=== PATIENT | female | born 1945 | race African-American/Black ===

== ENCOUNTER 2017-12-17 11:00 | Inpatient (IN) | payer OTHER ==
[2017-12-20 10:04] VITALS: BMI 26.4
[2018-01-02] MEDS ORDERED: oxyCODONE HCL 10 MG SUSTAINED ACTING TABLET PO ONE (21:53)
[2018-01-02] MEDS ORDERED: GABAPENTIN 300 MG CAPSULE (FP) PO ONE (21:53)
[2018-01-02] MEDS ORDERED: CELECOXIB 200 MG CAPSULE PO ONE (21:53)
[2018-01-02] MEDS ORDERED: ROPIVICAINE 0.2%/MORPH PF/KETOROLAC - 51ML DISP.SYRINGE IA ONE (21:53)
[2018-01-02] MEDS ORDERED: PANTOPRAZOLE 40 MG TABLET (FP) PO ONE (21:53)
[2018-01-02] MEDS ORDERED: CEFAZOLIN 1 GM/D5W 1 GM/50 ML BAG IVPB ONE (21:53)
[2018-01-02] MEDS ORDERED: TRANEXAMIC ACID 1000 MG/10 ML VIAL IVPUSH ONE (21:53)
[2018-01-03] MEDS ORDERED: GABAPENTIN 300 MG CAPSULE (FP) ONE (06:41)
[2018-01-03] MEDS ORDERED: CELECOXIB 200 MG CAPSULE ONE (06:41)
[2018-01-03] MEDS ORDERED: PANTOPRAZOLE 40 MG TABLET (FP) ONE (06:41)
[2018-01-03] MEDS ORDERED: oxyCODONE HCL 10 MG SUSTAINED ACTING TABLET ONE (06:41)
[2018-01-03] MEDS ORDERED: DEXAMETHASONE SOD PHOSPHATE/PF 10 MG/ML SDV ONE (06:59)
[2018-01-03] MEDS ORDERED: MIDAZOLAM HCL 2 MG/2 ML SINGLE DOSE VIAL ONE ×2 (06:59→07:00)
[2018-01-03] MEDS ORDERED: BUPIVACAINE HCL/PF (5 MG/ML) 30 ML VIAL IJ ONE (07:00)
[2018-01-03] MEDS ORDERED: ONDANSETRON 4 MG/2 ML VIAL ONE (07:06)
[2018-01-03] MEDS ORDERED: DEXAMETHASONE SOD PHOSPHATE 4 MG/1 ML VIAL ONE (07:06)
[2018-01-03] MEDS ORDERED: ceFAZolin SODIUM 1 GM VIAL ONE ×2 (07:06→07:49)
[2018-01-03] MEDS ORDERED: SODIUM CHLORIDE 0.9% P/F 10 ML VIAL IJ ONE (07:06)
[2018-01-03] MEDS ORDERED: PROPOFOL 20 ML ONE ×3 (07:10→09:11)
[2018-01-03] MEDS ORDERED: SUCCINYLCHOLINE CHLORIDE 200 MG/10 ML VIAL ONE (07:12)
--- NOTE | 2018-01-03 07:27 | HP ---
Admitting History and Physical - Admission Chief Complaint: left hip osteoarthritis x years History of Present Illness: 72 year old female presents today in regard to her left hip. Longstanding history of left hip osteoarthritis. Patient complains of pain, limited ROM, difficulty ambulating and difficulty with ADLs. Patient has failed conservative treatment measures including PO medication, activity modification, injections and exercise programs. At this point, patient wishes to proceed with surgical intervention - left total hip arthroplasty (MAKOplasty). History Source: Patient - Past Medical History Cardiovascular: Yes: HTN, Hyperlipdemia Gastrointestinal: Yes: GERD ...: No - Past Surgical History Additional Past Surgical History: See written history & physical. - Smoking History Smoking history: Never smoked Have you smoked in the past 12 months: No If you are a former smoker, when did you quit?: 1970S - Alcohol/Substance Use Hx Alcohol Use: Yes (RARE) Home Medications - Allergies Allergies/Adverse Reactions: Allergies Allergy/AdvReac Type Severity Reaction Status Date / Time No Known Drug Allergies Allergy Verified 12/20/17 09:52 - Home Medications Home Medications: Ambulatory Orders Amlodipine Besylate [Norvasc -] 5 mg PO DAILY 09/16/13 Benazepril HCl 20 mg PO DAILY 09/16/13 Simvastatin [Zocor -] 20 mg PO DAILY 09/16/13 Esomeprazole Mag Trihydrate [Nexium] 40 mg PO DAILY PRN 03/21/14 Review of Systems - Review of Systems Musculoskeletal: reports: Decreased ROM (left hip), Joint Pain (left hup) Physical Examination Vital Signs: Vital Signs Temperature 97.7 F 01/03/18 06:20 Pulse Rate 106 H 01/03/18 06:20 Respiratory Rate 18 01/03/18 06:20 Blood Pressure 171/86 01/03/18 06:20 O2 Sat by Pulse Oximetry (%) Constitutional: Yes: Well Nourished, No Distress Eyes: Yes: Conjunctiva Clear HENT: Yes: Atraumatic, Normocephalic Neck: Yes: Supple Cardiovascular: Yes: Regular Rate and Rhythm Respiratory: Yes: Regular Gastrointestinal: Yes: Soft ...Rectal Exam: Yes: Deferred Musculoskeletal: Yes: Joint Stiffness (left hip) Assessment/Plan 72 year old female presents today in regard to her left hip. Longstanding history of left hip osteoarthritis. Patient complains of pain, limited ROM, difficulty ambulating and difficulty with ADLs. Patient has failed conservative treatment measures including PO medication, activity modification, injections and exercise programs. At this point, patient wishes to proceed with surgical intervention - left total hip arthroplasty (MAKOplasty). Pros, cons, risks, benefits and alternatives of a left total hip arthroplasty (MAKOplasty) were discussed with the patient at length. Patient confirms her understanding and consent to proceed with a left total hip arthroplasty (MAKOplasty).
[2018-01-03] MEDS ORDERED: TRANEXAMIC ACID 1000 MG/10 ML VIAL ONE ×2 (07:49→08:17)
[2018-01-03] MEDS ORDERED: VANCOMYCIN 1,000 MG VIAL (RESTRICTED TO ID ONLY) ONE (07:49)
[2018-01-03] MEDS ORDERED: ROPIVICAINE 0.2%/MORPH PF/KETOROLAC - 51ML DISP.SYRINGE IA ONE ×2 (09:05→10:02)
[2018-01-03] MEDS ORDERED: ePHEDrine SULFATE 50 MG/1 ML AMPULE ONE (09:21)
[2018-01-03] MEDS ORDERED: ceFAZolin SODIUM 1 GM VIAL IVPB ONE (09:59)
[2018-01-03] MEDS ORDERED: TRANEXAMIC ACID 1000 MG/10 ML VIAL IVPB ONE (10:02)
[2018-01-03] MEDS ORDERED: VANCOMYCIN 1,000 MG VIAL (RESTRICTED TO ID ONLY) IVPB ONE (10:03)
--- NOTE | 2018-01-03 10:43 | OP ---
Operative Note - Note: Operative Date: 01/03/18 Pre-Operative Diagnosis: Left hip OA Operation: Left ZEKE BETTE Post-Operative Diagnosis: Same as Pre-op Surgeon: Jhonny Bay Display Associate: Iram Hanson Anesthesia: Spinal Estimated Blood Loss (mls): 200
[2018-01-03] MEDS ORDERED: ONDANSETRON 4 MG/2 ML VIAL IVPUSH PRN (10:44)
[2018-01-03] MEDS ORDERED: MAGNESIUM HYDROX 2400MG/30ML ORAL SUSPENSION 30 ML CUP PO PRN (10:44)
[2018-01-03] MEDS ORDERED: MAG HYDROX/AL HYDROX/SIMETH 30 ML UNIT-DOSE CUP PO PRN (10:44)
[2018-01-03] MEDS ORDERED: LACTATED RINGERS SOLUTION 1,000 ML IV SCH (10:45)
[2018-01-03] MEDS ORDERED: oxyCODONE HCL 5 MG TABLET PO PRN ×2 (10:57)
[2018-01-03] MEDS ORDERED: ACETAMINOPHEN 325 MG TABLET (FP) PO SCH (11:00)
[2018-01-03] MEDS: ACETAMINOPHEN 1000 MG/100 ML VIAL (NON FORMULARY) IVPB ONE ×2 (11:00→12:20)
[2018-01-03] MEDS ORDERED: KETOROLAC TROMETHAMINE 30 MG/1 ML VIAL IVPUSH SCH (11:00)
[2018-01-03] MEDS ORDERED: KETOROLAC TROMETHAMINE 30 MG/1 ML VIAL ONE (11:06)
[2018-01-03] MEDS ORDERED: traMADol HCL 50 MG TABLET ONE (11:07)
[2018-01-03] MEDS ORDERED: ACETAMINOPHEN INJECTION 100 ML IVPB ONE (11:07)
[2018-01-03] MEDS: traMADol HCL 50 MG TABLET PO SCH ×3 (11:30→17:46)
[2018-01-03] MEDS: ACETAMINOPHEN 325 MG TABLET (FP) PO SCH ×2 (12:20→17:47)
[2018-01-03] MEDS: KETOROLAC TROMETHAMINE 30 MG/1 ML VIAL IVPUSH SCH ×2 (12:20→17:47)
[2018-01-03] MEDS: CEFAZOLIN 1 GM/D5W 1 GM/50 ML BAG IVPB SCH (17:46)
[2018-01-03] MEDS ORDERED: DEXAMETHASONE SOD PHOSPHATE 10 MG/1 ML VIAL IVPB ONE (20:00)
[2018-01-03] MEDS: ASCORBIC ACID 500 MG TABLET (FP) PO SCH (21:54)
[2018-01-03] MEDS: CELECOXIB 200 MG CAPSULE PO SCH (21:54)
[2018-01-03] MEDS: ATORVASTATIN CA 10 MG TABLET (FP) PO SCH (21:55)
[2018-01-03] MEDS: oxyCODONE HCL 10 MG SUSTAINED ACTING TABLET PO SCH (21:55)
[2018-01-03] MEDS: SENNOSIDES/DOCUSATE COMBO (SENNA PLUS) TABLET (UD) PO SCH (21:55)
[2018-01-03] MEDS: GABAPENTIN 300 MG CAPSULE (FP) PO SCH (21:55)
[2018-01-04] MEDS: CEFAZOLIN 1 GM/D5W 1 GM/50 ML BAG IVPB SCH (02:00)
[2018-01-04] MEDS: KETOROLAC TROMETHAMINE 30 MG/1 ML VIAL IVPUSH SCH ×2 (06:17)
[2018-01-04] MEDS: ACETAMINOPHEN 325 MG TABLET (FP) PO SCH ×4 (06:18→17:41)
[2018-01-04] MEDS: traMADol HCL 50 MG TABLET PO SCH ×3 (06:19→16:40)
[2018-01-04] MEDS: ASPIRIN 325 MG TABLET PO SCH (08:00)
[2018-01-04 08:33] LABS: HEMOGLOBIN 11.3 GM/dl (10.7-15.3)
[2018-01-04 08:34] LABS: HEMATOCRIT 35.2 % (32.4-45.2); MCH 26.4 pg (25.7-33.7); MCHC 32.2 g/dl (32.0-36.0); MEAN PLT VOLUME 7.9 fl (7.5-11.1); PLATELET COUNT 260 K/MM3 (134-434); RBC 4.29 M/mm3 (3.60-5.2); RDW 12.9 % (11.6-15.6); WHITE BLOOD COUNT 14.3 K/mm3 (4.0-10.8)
[2018-01-04 08:45] LABS: ANION GAP 9 MMOL/L (8-16); BLOOD UREA NITROGEN 25 mg/dl (7-18); CALCIUM 8.8 mg/dl (8.4-10.2); CHLORIDE 103 mmol/L (98-107); CO2 21 mmol/L (22-28); CREATININE 1.1 mg/dl (0.6-1.3); GLUCOSE,RANDOM 166 mg/dl (74-106); POTASSIUM 4.6 mmol/L (3.5-5.1); SODIUM 133 mmol/L (136-145)
[2018-01-04] MEDS: LISINOPRIL 20 MG TABLET (FP) PO SCH (10:00)
[2018-01-04] MEDS: MULTIVITAMINS (DAILY MVI) TABLET (FP) PO SCH (10:00)
[2018-01-04] MEDS: SENNOSIDES/DOCUSATE COMBO (SENNA PLUS) TABLET (UD) PO SCH ×2 (10:00→21:23)
[2018-01-04] MEDS: CELECOXIB 200 MG CAPSULE PO SCH ×2 (10:00→21:23)
[2018-01-04] MEDS: GABAPENTIN 300 MG CAPSULE (FP) PO SCH ×2 (10:00→21:23)
[2018-01-04] MEDS: PANTOPRAZOLE 40 MG TABLET (FP) PO SCH (10:05)
[2018-01-04] MEDS: amLODIPine BESYLATE 5 MG TABLET (FP) PO SCH (10:05)
--- NOTE | 2018-01-04 10:14 | PN ---
Progress Note (short form) - Note Progress Note: ANESTHESIA POSTOP 72 yo female POD#1 s/p L total hip with spinal anesthesia and PNB. Patient doing well. Actively participating in PT. Tolerating PO. Pain adequately controlled. VSS, Afebrile Continue current care. Encouraged IS.
[2018-01-04] MEDS: oxyCODONE HCL 10 MG SUSTAINED ACTING TABLET PO SCH ×2 (10:15→21:24)
[2018-01-04] MEDS: ASCORBIC ACID 500 MG TABLET (FP) PO SCH ×2 (10:20→21:23)
[2018-01-04] MEDS: ATORVASTATIN CA 10 MG TABLET (FP) PO SCH (21:23)
[2018-01-05] MEDS: traMADol HCL 50 MG TABLET PO SCH ×3 (00:33→10:55)
[2018-01-05] MEDS: ACETAMINOPHEN 325 MG TABLET (FP) PO SCH ×3 (00:34→12:05)
[2018-01-05 07:08] VITALS: BP 134/74; PULSE 82; TEMP 98.5
[2018-01-05] MEDS: ASPIRIN 325 MG TABLET PO SCH (08:05)
[2018-01-05 08:35] LABS: HEMATOCRIT 32.7 % (32.4-45.2); HEMOGLOBIN 10.5 GM/dl (10.7-15.3); MCH 26.4 pg (25.7-33.7); MEAN CELL VOLUME 82.5 fl (80-96); MEAN PLT VOLUME 7.9 fl (7.5-11.1); PLATELET COUNT 243 K/MM3 (134-434); RBC 3.96 M/mm3 (3.60-5.2); RDW 13.4 % (11.6-15.6)
--- NOTE | 2018-01-05 09:51 | DS ---
Physical Examination Vital Signs: Vital Signs Temperature 98.5 F 01/05/18 06:00 Pulse Rate 82 01/05/18 06:00 Respiratory Rate 18 01/05/18 06:00 Blood Pressure 134/74 01/05/18 06:00 O2 Sat by Pulse Oximetry (%) 96 01/04/18 22:00 Labs: CBC, BMP 01/05/18 07:30 Discharge Summary Reason For Visit: OSTEOARTHRITIS LEFT HIP Current Active Problems Osteoarthritis of left hip (Acute) Procedures: Principal: left ZEKE BETTE Hospital Course: Admitted for elective surgery. Procedure performed without complications. Pt received postoperative antibiotic prophylaxis and DVT ppx. Ambulated with physical therapy. Stable for discharge home with outpatient followup. Condition: Stable - Instructions Diet, Activity, Other Instructions: Dr Bay - Hip Replacement Instructions Keep the Aquacel dressing on until removed by Dr. Bay in 10-14 days - it is antibacterial and waterproof and you can shower with it on. Call the office for a follow-up appointment with Dr. Bay in 10-14 days. Take one Aspirin 325mg daily for 6 weeks to prevent blood clots in your legs. Resume taking Nexium daily for 6 weeks to protect against heartburn and ulcers. Take Cephalexin (antibiotic) 3x/day for 10 days to help prevent skin infection. Take Celebrex 200mg daily for 30 days to reduce swelling and inflammation. Take a multivitamin, stool softener and extra Vitamin C supplement daily. For pain: *Mild pain (1-3/10): Take 1 Tramadol tablet every 4 hours as needed. Moderate pain (4-6/10): Take 1 Tramadol tablet and 1 Percocet tablet every 4 hours as needed. Severe pain (7-10/10): Take 1 Tramadol tablet and 2 Percocet tablets every 4 hours as needed. Activity: You can put as much weight on the operative leg as you want. For the first 6 weeks, all you need to do is walk around the house, go up/down stairs, and sit down/get up. After 6 weeks when everything is healed (and bone has grown into the implant) you will be sent for more intensive outpatient physical therapy. Always use a walker or cane for balance and to prevent falls. Expect to see swelling / bruising from the operative site all the way down to your toes. Wear the Compression stocking on the operative side during the day to minimize how much swelling there is in your foot/ankle. Don't wear the stocking at night. You don't have to wear the stocking on the other side. Disposition: VNS/HOME HEALTH CARE - Home Medications Comprehensive Discharge Medication List: Ambulatory Orders Amlodipine Besylate [Norvasc -] 5 mg PO DAILY 09/16/13 Benazepril HCl 20 mg PO DAILY 09/16/13 Simvastatin [Zocor -] 20 mg PO DAILY 09/16/13 Esomeprazole Mag Trihydrate [Nexium] 40 mg PO DAILY PRN 03/21/14 Ascorbic Acid [Vitamin C -] 500 mg PO BID tablet 01/05/18 Aspirin [ASA -] 325 mg PO DAILY@0800 tablet 01/05/18 Celecoxib [CeleBREX -] 200 mg PO DAILY #30 capsule 01/05/18 Cephalexin Monohydrate [Keflex -] 500 mg PO TID #30 capsule 01/05/18 Multivitamins [Multivit ([facility] Formulary)] 1 tab PO DAILY tab 01/05/18 Oxycodone HCl/Acetaminophen [Percocet 5-325 mg Tablet] 1 - 2 tab PO Q4H PRN #60 tablet MDD 10 01/05/18 Sennosides/Docusate Sodium [Pericolace -] 2 tablet PO BID tablet 01/05/18 traMADol HCL [Ultram -] 50 mg PO Q4H PRN #42 tablet MDD 6 01/05/18
[2018-01-05] MEDS: GABAPENTIN 300 MG CAPSULE (FP) PO SCH (09:55)
[2018-01-05] MEDS: PANTOPRAZOLE 40 MG TABLET (FP) PO SCH (10:00)
[2018-01-05] MEDS: ASCORBIC ACID 500 MG TABLET (FP) PO SCH (10:00)
[2018-01-05] MEDS: amLODIPine BESYLATE 5 MG TABLET (FP) PO SCH (10:00)
[2018-01-05] MEDS: MULTIVITAMINS (DAILY MVI) TABLET (FP) PO SCH (10:00)
[2018-01-05] MEDS: CELECOXIB 200 MG CAPSULE PO SCH (10:05)
[2018-01-05] MEDS: SENNOSIDES/DOCUSATE COMBO (SENNA PLUS) TABLET (UD) PO SCH (10:05)
[2018-01-05] MEDS: LISINOPRIL 20 MG TABLET (FP) PO SCH (10:05)
[2018-01-05] MEDS: oxyCODONE HCL 10 MG SUSTAINED ACTING TABLET PO SCH (10:10)
[2018-01-05 10:18] LABS: ANION GAP 8 MMOL/L (8-16); BLOOD UREA NITROGEN 25 mg/dl (7-18); CALCIUM 9.1 mg/dl (8.4-10.2); CHLORIDE 103 mmol/L (98-107); CO2 26 mmol/L (22-28); CREATININE 0.9 mg/dl (0.6-1.3); GLUCOSE,RANDOM 104 mg/dl (74-106); POTASSIUM 4.7 mmol/L (3.5-5.1); SODIUM 137 mmol/L (136-145)
--- NOTE | 2018-01-08 16:10 | PATH ---
Surgical Pathology Report Patient Name: EVER KING Med. Rec. #: [id number] /Age/Gender: 1945 (Age: 72) / F Account: [id number] Location: [facility] [place] MED-SURG Taken: 01/03/2018 Received: 01/03/2018 Reported: 01/08/2018 Physicians: Jhonny Bay M.D. Specimen(s) Received LEFT FEMORAL HEAD Clinical History Osteoarthritis left hip Final Diagnosis BONE, FEMORAL HEAD, LEFT, TOTAL HIP REPLACEMENT MAKOPLASTY: DEGENERATIVE JOINT DISEASE. Electronically Signed Iva Mckoy M.D. Gross Description Received in formalin, labeled "left femoral head," is a 4.2 x 4.2 x 3.7 cm. femoral head with 1.2 cm in length portion of femoral neck attached. The margin of resection is smooth. There is a 3.5 cm in greatest dimension area of eburnation present. The remaining articular surface is pena-yellow and focally granular. The underlying trabecular bone is yellow and hard. A used equipment sales representative section is submitted in one cassette, following decalcification. 01/04/2018 saudi01/04/2018
--- NOTE | 2018-01-30 12:00 | SPEC ---
DATE OF OPERATION: 01/03/2018 PREOPERATIVE DIAGNOSIS: Left hip osteoarthritis. POSTOPERATIVE DIAGNOSIS: Left hip osteoarthritis. PROCEDURE: Left total hip replacement with MAKOplasty robotic navigation. ATTENDING: Kimberly Juárez MD LEATHER ETCHER: SATINDER Garibay ANESTHESIA: Spinal plus sedation. ESTIMATED BLOOD LOSS: 200 mL. COMPLICATIONS: None. DISPOSITION: The patient was transferred to the PACU in stable condition. IMPLANTS USED: [place] Accolade II size 5 femoral component, Sadaf Tritanum 50-mm acetabular component with 30- and 25-mm acetabular screws, MDM bipolar head ball. INDICATIONS: This is a 72-year-old female who presented to the office complaining of severe left hip pain. She was seen and examined by Dr. Juárez and diagnosed with severe left hip osteoarthritis. The patient was initially treated nonoperatively with injections, medications, and physical therapy but continued to have severe pain and ambulatory dysfunction. She was, therefore, indicated for a left total knee replacement with MAKOplasty robotic navigation. The risks, benefits, and alternatives to the surgery were explained to the patient in great detail, and she elected to proceed with the procedure. DESCRIPTION OF PROCEDURE: On the day of surgery, the patient was taken to the operating room and placed on the OR table. Spinal anesthesia was administered by the anesthesiologist. The patient was then positioned in the lateral decubitus position on the table and all bony prominences were padded. An axillary roll was placed. The operative hip was then prepped and draped in the usual sterile fashion and intravenous antibiotics were given for infection prophylaxis. A surgical time-out was then performed with the team, and the patients identity, procedure, side, availability of implants, and the administration of antibiotics were confirmed. An approximately 15-cm longitudinal incision was made through the skin centered on the greater trochanter of the hip. This dissection was carried down through the subcutaneous tissues to the deep fascia. This fascia was then incised, and a Cobra was placed around the inferior femoral neck. Electrocautery was used to reflect the anterior 40% of the gluteus medius and minimus starting at the musculotendinous junction and leaving a cuff for closure. This was reflected to reveal the capsule of the hip joint. An anterior capsulectomy was performed and the femoral head and neck were visualized. Grade 4 changes were noted diffusely throughout the joint. At this point, three small stab incisions were made superior to the main incision along the iliac crest. Three self-drilling Steinmann pins were then placed and the Visual Unity pelvic array was attached. Reference points on the limb were then entered into the robotic device and the limb length deficiency, offset, and femoral neck resection level were then calculated by the software. The hip was then dislocated with traction and external rotation. An oscillating saw was used to make the femoral neck cut at the level previously templated, and the femoral head was removed. Attention was then turned to the acetabulum. Retractors were then placed around the acetabulum and the labrum was removed. An acetabular checkpoint pin and the Visual Unity software were used to register the contours of the acetabulum. The acetabulum was then reamed in a single stage to the preoperatively templated size using the Visual Unity robotic arm. The appropriately sized cup was then impacted and had solid fixation as well as the preset inclination and version of 40 and 20 degrees, respectively. A polyethylene liner was then placed in the cup. Attention was then turned back to the femur, which was externally rotated for improved visualization. A femoral neck elevator was used to present the femoral neck cut, a box osteotome was used to enter the femoral canal, and a canal finder was used to go down the femoral shaft. The Noah broaches were used sequentially until the optimal scratch fit was achieved. This correlated with the preoperatively templated size. From here, several different offset head and neck configurations were tested until excellent stability and length were obtained. These measurements were quantified using the Visual Unity software. All trial components were then removed, the femur was copiously irrigated, and the final components were placed. After final implants were placed, a 3-minute dilute Betadine lavage was performed. Following this, the wound was thoroughly irrigated with normal saline, and wound closure was begun. Leg length and stability were checked again and found to be excellent. Irrigation was performed again. Wound closure was started by repairing the abductor muscles with a no. 2 FiberWire stitch in a Krackow configuration passed through bone tunnels in the greater trochanter and tied over a bony bridge. This repair was then reinforced with a 0 V-Loc 180 barbed suture. Next, no. 1 Polysorb and 0 V-Loc 180 were used to close the fascia. The deep subcutaneous tissue was closed with no. 1 Polysorb sutures, and 2-0 Polysorb was used for the superficial subcutaneous tissue. The skin was closed using both 3-0 V-Loc 90 suture in a running subcuticular fashion and SwiftSet skin adhesive. The Noah array and pins were removed from the iliac crest and the stab incision sites were irrigated and closed with 4-0 Polysorb sutures and SwiftSet skin adhesive. Once this was completed, a sterile dressing was applied. The patient was then awakened and taken to the PACU in stable condition. KIMBERLY JUÁREZ M.D. CHRISTOPHER/[id number]
== END 2018-01-05 14:30 | disposition home health service (06) | DRG 470 ==
LOC: FM/S 01-03 06:00
PROVIDERS: ADMIT Student in an Organized Health Care Education/Training Program; ATTEND Student in an Organized Health Care Education/Training Program
PROC: 8E0Y0CZ Robotic Assisted Procedure of Lower Extremity, Open Approach (ICD-10-PCS; 2018-01-03)
PROC: 0SRB0JA Replacement of Left Hip Joint with Synthetic Substitute, Uncemented, Open Approach (ICD-10-PCS; principal; 2018-01-03 08:00)
DX: M16.12 Unilateral primary osteoarthritis, left hip (principal); I10 Essential (primary) hypertension; E78.5 Hyperlipidemia, unspecified; K21.9 Gastro-esophageal reflux disease without esophagitis
CPT/HCPCS: 36415; 73523-TC-FY; 80048; 85027; 88305-TC; 88311-TC; 94760; 97116-GP; 97162-GP; J0131; J1100

== ENCOUNTER 2018-01-29 08:51 | Emergency (ER) | payer OTHER ==
[2018-01-29 09:14] VITALS: BMI 26.2
[2018-01-29] MEDS ORDERED: SODIUM CHLORIDE 1,000 ML IV ONE (09:33)
--- NOTE | 2018-01-29 09:49 | PDOC ---
History of Present Illness - General Chief Complaint: Pain, Acute Stated Complaint: STOMACH ISSUES/CAN'T SLEEP Time Seen by Provider: 01/29/18 09:14 History Source: Patient Exam Limitations: No Limitations - History of Present Illness Travel History: No Initial Comments: 01/29/18 09:47 72y F hpylori, htn, hl, recent L hip athroplasty (12/2017) presents with abdominal discomfort and nausea for the past 3 days. Pt notes the abd discomfort is more of an unsettled stomach in the periumbilical area associated with nausea and seems worse after she eats. She denies any sob, cp, diaphoresis , worsening on exertion, fever/chills, diarrhea, melena, bpr. The pt has been eaing less the past few days due to the discomfort and has only been drkining water. pt remembers having a similar episode a few years ago for which she came to the ED for evaluation but has had none since. No sick ocntacts or recent travel. PMD Serafin Past History - Past Medical History Allergies/Adverse Reactions: Allergies Allergy/AdvReac Type Severity Reaction Status Date / Time No Known Drug Allergies Allergy Verified 01/29/18 09:10 Home Medications: Ambulatory Orders Amlodipine Besylate [Norvasc -] 5 mg PO DAILY 09/16/13 Benazepril HCl 10 mg PO DAILY 09/16/13 Simvastatin [Zocor -] 10 mg PO DAILY 09/16/13 Esomeprazole Mag Trihydrate [Nexium] 40 mg PO DAILY PRN 03/21/14 Sennosides/Docusate Sodium [Pericolace -] 2 tablet PO BID tablet 01/05/18 Alprazolam [Xanax] 0.25 mg PO Q8H PRN #5 tablet MDD 3 01/29/18 Anemia: Yes (RECENTLY DX,IMPROVED DIET AND ANEMIA IMPROVED) Asthma: No Cancer: No Cardiac Disorders: No ([employer] M[employer]ED [employer]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) CVA: No COPD: No CHF: No Dementia: No Diabetes: No GI Disorders: Yes (GERD) Disorders: No HTN: Yes Hypercholesterolemia: Yes Liver Disease: No Seizures: No Thyroid Disease: No - Surgical History Abdominal Surgery: No Appendectomy: No Cardiac Surgery: No Cholecystectomy: No Lung Surgery: No Neurologic Surgery: No Orthopedic Surgery: Yes (LEFT KNEE ARTHROSCOPY 2010) - Suicide/Smoking/Psychosocial Hx Smoking History: Never smoked Have you smoked in the past 12 months: No If you are a former smoker, when did you quit?: 1970S Hx Alcohol Use: No Drug/Substance Use Hx: No Substance Use Type: Alcohol Hx Substance Use Treatment: No Review of Systems - Review of Systems Able to Perform ROS?: Yes Comments:: 01/29/18 10:23 Constitutional - no reported Fever, Chills, HEENT: no reported vision changes, sore throat Respiratory: no reported cough, sob, hemoptysis Cardiac: no reported chest pain, palpitations, light headedness, leg swelling Abd/GI: +nausea, abd discomfort no reported vomiting, blood per rectum, melena , diarrhea : no reported dysuria, frequency, discharge Musculskelatal - no reported back pain, joint swelling skin - no reported bruising, erythema, rash neurological: no reported headache, numbness, focal weakness, tingling, ataxia, hematologic: no reported easy bruising, easy bleeding *Physical Exam - Vital Signs Last Vital Signs Temp Pulse Resp BP Pulse Ox 99.3 F 122 H 16 167/85 99 01/29/18 09:10 01/29/18 09:10 01/29/18 09:10 01/29/18 09:10 01/29/18 09:10 - Physical Exam Comments: 01/29/18 10:23 GENERAL: The patient is awake, alert, and fully oriented, Nontoxic - in no acute distress. HEAD: Normocephalic, atraumatic. EYES: extraocular movements intact, sclera anicteric, conjunctiva clear. ENT: Normal voice, dry mucous membranes. NECK: Normal range of motion, supple LUNGS: Breath sounds equal, clear to auscultation bilaterally. No wheezes, no rhonchi, no rales. HEART: Tachycardic, no murmurs ABDOMEN: Soft, nontender, No guarding, no rebound. . No CVA tenderness EXTREMITIES: Normal range of motion, no edema. NEUROLOGICAL: No facial assymetry, Normal speech, PSYCH: Normal mood, normal affect. SKIN: Warm, Dry, normal turgor, Heart Score/ECG Review - ECG Impressions Comment:: 01/29/18 10:29 Twelve-lead EKG was performed and reviewed by me. There is normal sinus rhythm with a normal rate. Rate of 99 Nonspecific T wave abnormality ED Treatment Course - LABORATORY CBC & Chemistry Diagram: 01/29/18 09:50 01/29/18 09:50 Medical Decision Making - Medical Decision Making 01/29/18 10:24 72-year-old presenting with complaint of epigastric discomfort associated with nausea without any chest pain, shows breath, fever, chills, diaphoresis, diarrhea. Exam the patient is well-appearing, no acute distress however her heart rate is elevated to 122, does have dry mucous membranes. patient's symptoms includes possible gastritis, gastric enteritis, consider possible ACS, No focal abdominal tenderness to suggest appendicitis, diverticulitis cholecystitis Will obtain blood work including CBC CMP, lipase ua to out UTI ekg to screen for acs will treat symptmatically with zofran, pepcid, maalox will reassess 01/29/18 11:42 Labs reviewed, unremarkable UA does not suggest UTI 01/29/18 12:08 pt ntoes she still feels alittle anxious. will give her small dose of xanax and reassess the pt 01/29/18 13:18 she is feeling improved her abdomen was reassessed it is soft nontender She is able to tolerate oral intake Suspect a component of her symptoms may be secondary to gastritis L discharge patient follow up with GI and PMD. return precautions were discussed I discussed the physical exam findings, ancillary test results and final diagnoses with the patient. I answered all of the patient's questions. The patient was satisfied with the care received and felt comfortable with the discharge plan and treatment plan. The patient will call their primary care physician within 24 hours to arrange follow-up and will return to the Emergency Department with any new, persistent or worsening symptoms. *DC/Admit/Observation/Transfer Diagnosis at time of Disposition: Gastritis Qualifiers: Gastritis type: unspecified gastritis Chronicity: acute Gastritis bleeding: without bleeding Qualified Code(s): K29.00 - Acute gastritis without bleeding - Discharge Dispostion Disposition: HOME Condition at time of disposition: Improved Decision to Admit order: No - Prescriptions Prescriptions: Alprazolam [Xanax] 0.25 mg PO Q8H PRN #5 tablet MDD 3 PRN Reason: Anxiety - Referrals Referrals: Elina Grove MD [Primary Care Provider] - Sandip Noriega DO [Staff Physician] - - Patient Instructions Printed Discharge Instructions: DI for Gastritis Additional Instructions: Return to the emergency department immediately with ANY new, persistent or worsening symptoms including any recurrent abdominal pain, fevers, chills, inability to tolerate oral intake or any other concerns. Stay away from alcohol, spicy foods, caffeine, acidic/sour foods. Take maalox if you have burning for relief. Continue using zantac every night for one week. You MUST call and follow up with your doctor and food and nutrition teacher within 5 days for further evaluation of your symptoms. Your emergency department visit is not complete without a followup with your doctor for reevaluation. Results were discussed with you. Please make sure your doctor reviews the results of your emergency evaluation. - Post Discharge Activity
[2018-01-29] MEDS ORDERED: ONDANSETRON 4 MG/2 ML VIAL IVPB ONE (10:00)
[2018-01-29] MEDS ORDERED: ONDANSETRON 4 MG/2 ML VIAL ONE (10:03)
[2018-01-29 10:05] LABS: BASO % 0.9 % (0-2.0); EOS % 0.5 % (0-4.5); HEMATOCRIT 36.7 % (32.4-45.2); HEMOGLOBIN 11.9 GM/dL (10.7-15.3); LYMPH % 10.3 % (8-40); MCH 26.2 pg (25.7-33.7); MCHC 32.4 g/dl (32.0-36.0); MEAN CELL VOLUME 80.9 fl (80-96); MEAN PLT VOLUME 7.4 fl (7.5-11.1); MONO % 5.8 % (3.8-10.2); NEUT % 82.5 % (42.8-82.8); PLATELET COUNT 396 K/MM3 (134-434); RBC 4.54 M/mm3 (3.60-5.2); RDW 14.2 % (11.6-15.6); WHITE BLOOD COUNT 7.6 K/mm3 (4.0-10.0)
[2018-01-29] MEDS ORDERED: FAMOTIDINE 20 MG/50 ML IVPB 20 MG in PREMIX 50 IVPB ONE (10:14)
[2018-01-29] MEDS ORDERED: MAG HYDROX/AL HYDROX/SIMETH -MYLANTA- ORAL SUSPENSION PO ONE (10:14)
[2018-01-29 10:16] LABS: URINE APPEARANCE CLEAR; URINE BILIRUBIN NEGATIVE (<2.0 mg/dL); URINE COLOR YELLOW; URINE GLUCOSE (UA) NEGATIVE (NEGATIVE); URINE KETONE TRACE (NEGATIVE); URINE NITRITE NEGATIVE (NEGATIVE); URINE PROTEIN NEGATIVE (NEGATIVE); URINE UROBILINOGEN NEGATIVE mg/dL (0.2-1.0)
[2018-01-29] MEDS ORDERED: FAMOTIDINE 20 MG/50 ML IVPB 20 MG/50 ML MG IVPB ONE (10:20)
[2018-01-29] MEDS ORDERED: MAG HYDROX/AL HYDROX/SIMETH 30 ML UNIT-DOSE CUP ONE (10:20)
[2018-01-29 10:22] LABS: URINE LEUK ESTERASE 1+ (NEGATIVE)
[2018-01-29 10:25] LABS: EPI CELLS FEW /HPF (FEW); URINE MUCUS RARE
[2018-01-29 11:19] LABS: ALBUMIN 4.1 g/dl (3.4-5.0); ALK PHOS 68 U/L (45-117); ANION GAP 11 MMOL/L (8-16); BILIRUBIN,TOTAL 0.6 mg/dL (0.2-1); BLOOD UREA NITROGEN 9 mg/dL (7-18); CALCIUM 10.3 mg/dL (8.5-10.1); CHLORIDE 105 mmol/L (98-107); CO2 26 mmol/L (21-32); CREATININE 0.7 mg/dL (0.55-1.3); GLUCOSE,RANDOM 115 mg/dL (74-106); LIPASE 180 U/L (73-393); POTASSIUM 4.2 mmol/L (3.5-5.1); SGOT/AST 30 U/L (15-37); SGPT/ALT 25 U/L (13-61); SODIUM 142 mmol/L (136-145); TOT PROT 8.2 g/dl (6.4-8.2)
[2018-01-29 11:57] VITALS: BP 135/64; PULSE 91; TEMP 98.3
[2018-01-29] MEDS ORDERED: ALPRAZolam 0.25 MG TABLET PO ONE (12:08)
[2018-01-29] MEDS ORDERED: ALPRAZolam 0.25 MG TABLET ONE (12:13)
--- NOTE | 2018-01-29 16:37 | EKG ---
Test Reason : Blood Pressure : / mmHG Vent. Rate : 099 BPM Atrial Rate : 099 BPM P-R Int : 152 ms QRS Dur : 074 ms QT Int : 338 ms P-R-T Axes : 047 -10 015 degrees QTc Int : 433 ms NORMAL SINUS RHYTHM POSSIBLE LEFT ATRIAL ENLARGEMENT LEFT VENTRICULAR HYPERTROPHY NONSPECIFIC ST AND T WAVE ABNORMALITY ABNORMAL ECG WHEN COMPARED WITH ECG OF 07-SEP-2015 08:32, NO SIGNIFICANT CHANGE WAS FOUND Confirmed by MD Ely, Bertin ([id number]) on 01/29/2018 4:36:52 PM Referred By: Confirmed By:Bertin Graves MD
== END 2018-01-29 13:37 | disposition home or self-care (01) ==
LOC: JER 08:51
PROC: 3E0337Z Introduction of Electrolytic and Water Balance Substance into Peripheral Vein, Percutaneous Approach (ICD-10-PCS; principal; 2018-01-29)
PROC: 3E033GC Introduction of Other Therapeutic Substance into Peripheral Vein, Percutaneous Approach (ICD-10-PCS; 2018-01-29)
PROC: 3E033GC Introduction of Other Therapeutic Substance into Peripheral Vein, Percutaneous Approach (ICD-10-PCS; 2018-01-29)
DX: K29.00 Acute gastritis without bleeding (principal); I10 Essential (primary) hypertension; E78.00 Pure hypercholesterolemia, unspecified; K21.9 Gastro-esophageal reflux disease without esophagitis; M16.12 Unilateral primary osteoarthritis, left hip
CPT/HCPCS: 36415; 80053; 81003; 81015; 82550; 83690; 84484; 85025; 93005; 93010; 96361; 96365; 96375; 99283-25; J7030

== ENCOUNTER 2018-06-09 16:18 | Emergency (ER) | payer OTHER ==
[2018-06-09 16:34] VITALS: BP 176/85; PULSE 104; TEMP 99; BMI 24.9
[2018-06-09] MEDS ORDERED: diphenhydrAMINE HCL 25 MG CAPSULE (FP) PO ONE ×2 (18:12→18:15)
--- NOTE | 2018-06-09 18:17 | PDOC ---
History of Present Illness - General Chief Complaint: Pain Stated Complaint: PAIN IN HAND Time Seen by Provider: 06/09/18 17:59 History Source: Patient Exam Limitations: No Limitations - History of Present Illness Initial Comments: 06/09/18 18:13 Patient is here with complaints of itching to her hands bilaterally. States has been intermittent and worsening over the past 3 weeks. States are mildly swollen and thinks may be related to the itching. Denies any weeping lesions, denies any rashes, has tried to use hydrocortisone/triamcinolone cream given to her pipestem deep with no resolve. Patient admits to being nervous and having trouble with her anxiety. Wonders may be related. Does not take any medication for her anxiety but admits to being under stress recently. Denies fever, denies any changes in lotions cremes clothing soaps or any environmental exposures. Has no other areas of eczema or skin rashes. No swelling to lips tongue breathing problems, no recent illness. Timing/Duration: unsure, other Severity: mild Past History - Travel Traveled outside of the country in the last 30 days: No Close contact w/someone who was outside of country & ill: No - Past Medical History Allergies/Adverse Reactions: Allergies Allergy/AdvReac Type Severity Reaction Status Date / Time No Known Drug Allergies Allergy Verified 06/09/18 16:34 Home Medications: Ambulatory Orders Amlodipine Besylate [Norvasc -] 5 mg PO DAILY 09/16/13 Benazepril HCl 10 mg PO DAILY 09/16/13 Simvastatin [Zocor -] 10 mg PO DAILY 09/16/13 Esomeprazole Mag Trihydrate [Nexium] 40 mg PO DAILY PRN 03/21/14 Sennosides/Docusate Sodium [Pericolace -] 2 tablet PO BID tablet 01/05/18 Alprazolam [Xanax] 0.25 mg PO Q8H PRN #5 tablet MDD 3 01/29/18 Diphenhydramine HCl [Benadryl -] 25 mg PO Q8H PRN #21 capsule 06/09/18 Metoprolol Succinate [Toprol Xl -] 25 mg PO DAILY 06/09/18 Anemia: Yes (RECENTLY DX,IMPROVED DIET AND ANEMIA IMPROVED) Asthma: No Cancer: No 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) CVA: No COPD: No CHF: No Dementia: No Diabetes: No GI Disorders: Yes (GERD) Disorders: No HTN: Yes Hypercholesterolemia: Yes Liver Disease: No Seizures: No Thyroid Disease: No - Surgical History Abdominal Surgery: No Appendectomy: No Cardiac Surgery: No Cholecystectomy: No Lung Surgery: No Neurologic Surgery: No Orthopedic Surgery: Yes (LEFT KNEE ARTHROSCOPY 2011) - Suicide/Smoking/Psychosocial Hx Smoking History: Never smoked Have you smoked in the past 12 months: No If you are a former smoker, when did you quit?: 1970S Hx Alcohol Use: No Drug/Substance Use Hx: No Substance Use Type: Alcohol Hx Substance Use Treatment: No Review of Systems - Review of Systems Able to Perform ROS?: Yes Is the patient limited Trinidadian proficient: Yes Constitutional: Yes: Symptoms Reported, See HPI, Malaise. No: Fever HEENTM: Yes: See HPI. No: Symptoms Reported Respiratory: Yes: See HPI Musculoskeletal: Yes: Symptoms Reported Integumentary: Yes: Symptoms Reported, See HPI, Dryness, Erythema Neurological: Yes: See HPI. No: Symptoms reported All Other Systems: Reviewed and Negative *Physical Exam - Vital Signs Last Vital Signs Temp Pulse Resp BP Pulse Ox 99.0 F 104 H 20 176/85 H 99 06/09/18 16:31 06/09/18 16:31 06/09/18 16:31 06/09/18 16:31 06/09/18 16:31 - Physical Exam General Appearance: Yes: Nourished, Appropriately Dressed, Apparent Distress HEENT: positive: JOSE ENRIQUE, Normal ENT Inspection, TMs Normal, Pharynx Normal Neck: positive: Supple. negative: Tender Respiratory/Chest: positive: Lungs Clear Gastrointestinal/Abdominal: positive: Soft Musculoskeletal: positive: Normal Inspection Extremity: positive: Normal Capillary Refill, Normal Inspection Integumentary: positive: Normal Color, Pale, Other (no rashes, lesions, weeping , is mildly dry, with minimal excoriation to palms and dorsum of hands. But no true swelling or fluctuance noted. Neurovascular intact and sensation intact.) Neurologic: positive: wait staff II-XII NML intact, Fully Oriented, Alert, Normal Mood/ Affect, Normal Response, Motor Strength 5/5 Moderate Sedation - Procedure Monitoring Vital Signs: Procedure Monitoring Vital Signs Temperature 99.0 F 06/09/18 16:31 Pulse Rate 104 H 06/09/18 16:31 Respiratory Rate 20 06/09/18 16:31 Blood Pressure 176/85 H 06/09/18 16:31 O2 Sat by Pulse Oximetry (%) 99 06/09/18 16:31 Medical Decision Making - Medical Decision Making 06/09/18 18:17 Pruritus to bilateral hands, may be anxiety related encouraged patient to use Benadryl for itching at night, and use Vaseline for emollient purpose. Given phone number for real estate transaction manager in encouraged to follow-up with PMD *DC/Admit/Observation/Transfer Diagnosis at time of Disposition: Pruritus of palm - Discharge Dispostion Disposition: HOME Condition at time of disposition: Stable Decision to Admit order: No - Prescriptions Prescriptions: Diphenhydramine HCl [Benadryl -] 25 mg PO Q8H PRN #21 capsule PRN Reason: sneezing/cough - Referrals Referrals: Elina Grove MD [Primary Care Provider] - Najma Johnson MD [Staff Physician] - - Patient Instructions Printed Discharge Instructions: Eczema Additional Instructions: Rest, keep cool and dry- avoid strenuous activity or hot /humid environments Less hot showers, no abrasive soaps May use heavy creams like Eucerin or Cetaphil to keep skin moist May apply Aveeno, calamine lotion, [id number] hydrocortisone creams as needed for symptoms May use Benadryl at night for antihistamine, Zyrtec/ Alma or Claritin for daytime antihistamine use to help with itching May use [id number] hydrocortisone cream on all areas except face Try to identify cause for rash and avoid exposures Followup with PMD in one week if no resolution Make appointment with real estate transaction manager for evaluation when possible - Post Discharge Activity
== END 2018-06-09 18:25 | disposition home or self-care (01) ==
LOC: JERFT 16:18
DX: L29.8 Other pruritus (principal)
CPT/HCPCS: 99281-25

== ENCOUNTER 2018-06-27 04:03 | Emergency (ER) | payer OTHER ==
--- NOTE | 2018-06-27 04:14 | PDOC ---
Attending Attestation - Resident Resident Name: Lit Hays - ED Attending Attestation I have performed the following: I have examined & evaluated the patient, The case was reviewed & discussed with the resident, I agree w/resident's findings & plan - HPI HPI: 06/27/18 05:58 72-year-old female with insomnia and an uneasy feeling in her stomach. Patient states that this is been going on for approximately 2 weeks. Patient admits that she has been preoccupied with the fact that she is getting older. - Physicial Exam PE: Agree with resident's exam - Medical Decision Making 06/27/18 06:00 72-year-old female with insomnia and a nervous stomach Labs are unremarkable EKG was unremarkable Chest x-ray shows no acute pulmonary disease Patient will be given a short course of Xanax when necessary for sleep and has been advised in the presence of her family to follow up with her primary care physician for further evaluation.
[2018-06-27] MEDS ORDERED: LORazepam 0.5 MG TABLET PO ONE (04:15)
[2018-06-27 04:18] VITALS: BP 173/81; PULSE 100; TEMP 98.5; BMI 24.7
[2018-06-27] MEDS ORDERED: LORazepam 0.5 MG TABLET ONE (04:27)
--- NOTE | 2018-06-27 04:36 | PDOC ---
History of Present Illness - General Chief Complaint: Psychiatric Stated Complaint: ABDOMINAL PAIN Time Seen by Provider: 06/27/18 04:13 - History of Present Illness Initial Comments: 72 year old female with PMH of HTN, GERD, HLD, and previous admissions for anxiety presenting with racing thoughts fro one week that prevent her from sleeping and occasional nausea with poor appetite. Patient attempted to use some mylanta at home with only minor relief of her symptoms. She states that she has had racing thoughts when trying to sleep at night that consist of perseveration on her loneliness and lack of friends. She has a friend who lives above her but is not in great health so it is difficult for them to spend time with each other. Denies any chest pain, diarrhea, fevers, vomiting, chills, headache, cough, SOB, SI/HI/AVH. She saw her doctor yesterday and he gave her a neurologist referral for some hand burning that she has had over the past few years but didn't seem to address the anxiety complaints. 06/27/18 04:31 Past History - Past Medical History Allergies/Adverse Reactions: Allergies Allergy/AdvReac Type Severity Reaction Status Date / Time No Known Drug Allergies Allergy Verified 06/27/18 04:15 Home Medications: Ambulatory Orders Amlodipine Besylate [Norvasc -] 5 mg PO DAILY 09/16/13 Benazepril HCl 10 mg PO DAILY 09/16/13 Simvastatin [Zocor -] 10 mg PO DAILY 09/16/13 Esomeprazole Mag Trihydrate [Nexium] 40 mg PO DAILY PRN 03/21/14 Sennosides/Docusate Sodium [Pericolace -] 2 tablet PO BID tablet 01/05/18 Diphenhydramine HCl [Benadryl -] 25 mg PO Q8H PRN #21 capsule 06/09/18 Metoprolol Succinate [Toprol Xl -] 25 mg PO DAILY 06/09/18 Alprazolam [Xanax] 0.25 mg PO DAILY PRN #5 tablet MDD 3 06/27/18 Anemia: Yes (RECENTLY DX,IMPROVED DIET AND ANEMIA IMPROVED) Asthma: No Cancer: No 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) CVA: No COPD: No CHF: No Dementia: No Diabetes: No GI Disorders: Yes (GERD) Disorders: No HTN: Yes Hypercholesterolemia: Yes Liver Disease: No Seizures: No Thyroid Disease: No - Surgical History Abdominal Surgery: No Appendectomy: No Cardiac Surgery: No Cholecystectomy: No Lung Surgery: No Neurologic Surgery: No Orthopedic Surgery: Yes (LEFT KNEE ARTHROSCOPY 2011) - Suicide/Smoking/Psychosocial Hx Smoking History: Never smoked Have you smoked in the past 12 months: No If you are a former smoker, when did you quit?: 1970S Information on smoking cessation initiated: No Hx Alcohol Use: No Drug/Substance Use Hx: No Substance Use Type: Alcohol Hx Substance Use Treatment: No Review of Systems - Review of Systems Constitutional: No: Chills, Diaphoresis, Fever HEENTM: No: Blurred Vision, Tearing Respiratory: No: Cough, Orthopnea, Shortness of Breath Cardiac (ROS): No: Chest Pain, Edema, Irregular Heart Rate, Lightheadedness, Palpitations ABD/GI: Yes: Nausea, Poor Appetite. No: Diarrhea, Vomiting : No: Burning, Dysuria, Discharge Musculoskeletal: No: Back Pain, Joint Pain Integumentary: No: Bruising, Erythema, Flushing Neurological: Yes: Tingling (occasional bilateral hand tingling and burning). No: Headache, Numbness, Paresthesia Psychiatric: Yes: Anxiety, Depression, Stressors, Sleep Pattern Change, Emotional Problems, Change in Appetite Hematologic/Lymphatic: No: Anemia, Blood Clots, Easy Bleeding *Physical Exam - Vital Signs Last Vital Signs Temp Pulse Resp BP Pulse Ox 98.5 F 100 H 18 173/81 H 98 06/27/18 04:15 06/27/18 04:15 06/27/18 04:15 06/27/18 04:15 06/27/18 04:15 - Physical Exam General Appearance: Yes: Nourished, Appropriately Dressed, Apparent Distress ( mild distress) HEENT: positive: EOMI, JOSE ENRIQUE, Normal ENT Inspection, Normal Voice Neck: positive: Trachea midline, Normal Thyroid, Supple. negative: Tender, Rigid Respiratory/Chest: positive: Lungs Clear, Normal Breath Sounds. negative: Chest Tender, Respiratory Distress, Accessory Muscle Use Cardiovascular: positive: Regular Rhythm, Tachycardia. negative: Regular Rate Gastrointestinal/Abdominal: positive: Normal Bowel Sounds, Flat, Soft. negative : Tender Lymphatic: negative: Adenopathy, Tenderness Musculoskeletal: positive: Normal Inspection. negative: Decreased Range of Motion Extremity: positive: Normal Capillary Refill, Normal Inspection, Normal Range of Motion. negative: Tender Integumentary: positive: Normal Color, Dry, Warm Neurologic: positive: Fully Oriented, Alert, Normal Response, Motor Strength 5/ 5. negative: Normal Mood/Affect (seems to get upset when trying to determine the reason for her visit today) Moderate Sedation - Procedure Monitoring Vital Signs: Procedure Monitoring Vital Signs Temperature 98.5 F 06/27/18 04:15 Pulse Rate 100 H 06/27/18 04:15 Respiratory Rate 18 06/27/18 04:15 Blood Pressure 173/81 H 06/27/18 04:15 O2 Sat by Pulse Oximetry (%) 98 06/27/18 04:15 ED Treatment Course - LABORATORY CBC & Chemistry Diagram: 06/27/18 04:31 06/27/18 04:31 - RADIOLOGY Radiology Studies Ordered: Category Date Time Status CXRPORT [CHEST X-RAY PORTABLE*] [RAD] Stat Radiology 06/27/18 04:30 Ordered - Medications Given in the ED: ED Medications Discontinued Medications Generic Name Dose Route Start Last Admin Trade Name Freq PRN Reason Stop Dose Admin Lorazepam 0.5 mg 06/27/18 04:15 06/27/18 04:30 Ativan - PO 06/27/18 04:16 0.5 mg ONCE ONE Administration Medical Decision Making - Medical Decision Making 72 year old with racing thoughts, inability to sleep, and "upset stomach". Labs all WNL, EKG WNL (84 BPM, NV interal 142, QRS 74, QTc 427, and normal axis, V1, V3 TWI with flttened TW in V2 amd biphasic in VC6 which are unchanged from EKG in 01/2019) and symptoms improved with pepcid, Maalox, and 0.5 ativan PO. CXR WNL. Will DC patient home with instructions to follow up with PCP for better evaluation of sleep issues and anxiety. 06/27/18 04:37 *DC/Admit/Observation/Transfer Diagnosis at time of Disposition: Anxiety - Discharge Dispostion Disposition: HOME Condition at time of disposition: Improved Decision to Admit order: No - Prescriptions Prescriptions: Alprazolam [Xanax] 0.25 mg PO DAILY PRN #5 tablet MDD 3 PRN Reason: Anxiety - Referrals Referrals: Maris Zayas MD [Staff Physician] - - Patient Instructions Printed Discharge Instructions: DI for Anxiety -- Adult Additional Instructions: Please follow up with your PCP this week and please make an appointment with Dr. Zayas to have your anxiety evaluated. If you can't see him please call your insurance company and determine which psychiatrist is covered by your insurance. Please try to spend more time with family and friends. Please return to the ED for new or worsening symptoms. - Post Discharge Activity
[2018-06-27 04:59] LABS: BASO % 0.8 % (0-2.0); EOS % 0.9 % (0-4.5); HEMATOCRIT 38.1 % (32.4-45.2); HEMOGLOBIN 12.9 GM/dL (10.7-15.3); LYMPH % 18.9 % (8-40); MCH 26.7 pg (25.7-33.7); MCHC 33.9 g/dl (32.0-36.0); MEAN CELL VOLUME 78.8 fl (80-96); MEAN PLT VOLUME 7.4 fl (7.5-11.1); MONO % 7.5 % (3.8-10.2); NEUT % 71.9 % (42.8-82.8); PLATELET COUNT 275 K/MM3 (134-434); RBC 4.83 M/mm3 (3.60-5.2); RDW 14.3 % (11.6-15.6); WHITE BLOOD COUNT 8.5 K/mm3 (4.0-10.0)
[2018-06-27 05:27] LABS: INR 1.03 (0.83-1.09); PROTHROMBIN TIME (PATIENT) 12.2 SEC (9.7-13.0)
[2018-06-27 05:41] LABS: ALK PHOS 64 U/L (45-117); AMYLASE 76 U/L (25-115); ANION GAP 8 MMOL/L (8-16); BILIRUBIN,DIRECT 0.1 mg/dL (0.0-0.2); BILIRUBIN,TOTAL 0.4 mg/dL (0.2-1); BLOOD UREA NITROGEN 8 mg/dL (7-18); CALCIUM 9.4 mg/dL (8.5-10.1); CHLORIDE 103 mmol/L (98-107); CO2 26 mmol/L (21-32); CREATININE 0.9 mg/dL (0.55-1.3); GLUCOSE,RANDOM 117 mg/dL (74-106); LIPASE 234 U/L (73-393); POTASSIUM 4.1 mmol/L (3.5-5.1); SGOT/AST 15 U/L (15-37); SGPT/ALT 28 U/L (13-61); SODIUM 137 mmol/L (136-145); TOT PROT 7.9 g/dl (6.4-8.2)
--- NOTE | 2018-06-27 06:31 | PDOC ---
ED Treatment Course - LABORATORY CBC & Chemistry Diagram: 06/27/18 04:31 06/27/18 04:31 - ADDITIONAL ORDERS Additional order review: Laboratory Results 06/27/18 06/27/18 04:31 04:31 PT with INR 12.20 INR 1.03 Sodium 137 Potassium 4.1 Chloride 103 Carbon Dioxide 26 Anion Gap 8 BUN 8 Creatinine 0.9 Creat Clearance w eGFR > 60 Random Glucose 117 H Calcium 9.4 Total Bilirubin 0.4 Direct Bilirubin 0.1 AST 15 ALT 28 Alkaline Phosphatase 64 Troponin I < 0.02 Total Protein 7.9 Albumin 4.0 Total Amylase 76 Lipase 234 06/27/18 04:31 RBC 4.83 MCV 78.8 L MCHC 33.9 RDW 14.3 MPV 7.4 L Neutrophils % 71.9 Lymphocytes % 18.9 D Monocytes % 7.5 Eosinophils % 0.9 Basophils % 0.8 - Medications Given in the ED: ED Medications Discontinued Medications Generic Name Dose Route Start Last Admin Trade Name Freq PRN Reason Stop Dose Admin Lorazepam 0.5 mg 06/27/18 04:15 06/27/18 04:30 Ativan - PO 06/27/18 04:16 0.5 mg ONCE ONE Administration *DC/Admit/Observation/Transfer Diagnosis at time of Disposition: Anxiety - Discharge Dispostion Disposition: HOME Condition at time of disposition: Improved - Prescriptions Prescriptions: Alprazolam [Xanax] 0.25 mg PO DAILY PRN #5 tablet MDD 3 PRN Reason: Anxiety Alprazolam [Xanax] 0.25 mg PO HS PRN 5 Days #5 tablet MDD 5 PRN Reason: Anxiety - Referrals Referrals: Maris Zayas MD [Staff Physician] - - Patient Instructions Printed Discharge Instructions: DI for Anxiety -- Adult Additional Instructions: Please follow up with your PCP this week and please make an appointment with Dr. Zayas to have your anxiety evaluated. If you can't see him please call your insurance company and determine which psychiatrist is covered by your insurance. Please try to spend more time with family and friends. Please return to the ED for new or worsening symptoms. - Post Discharge Activity
--- NOTE | 2018-06-27 11:59 | EKG ---
Test Reason : Blood Pressure : / mmHG Vent. Rate : 084 BPM Atrial Rate : 085 BPM P-R Int : 142 ms QRS Dur : 074 ms QT Int : 362 ms P-R-T Axes : 047 -06 014 degrees QTc Int : 427 ms NORMAL SINUS RHYTHM POSSIBLE LEFT ATRIAL ENLARGEMENT LEFT VENTRICULAR HYPERTROPHY ABNORMAL ECG WHEN COMPARED WITH ECG OF 29-JAN-2018 09:50, NO SIGNIFICANT CHANGE WAS FOUND Confirmed by ALEXA DRISCOLL, ZHANNA ([id number]) on 06/27/2018 11:59:09 AM Referred By: Confirmed By:ZHANNA LIU MD
== END 2018-06-27 06:06 | disposition home or self-care (01) ==
LOC: JER 04:03
DX: F41.9 Anxiety disorder, unspecified (principal); I10 Essential (primary) hypertension; E78.00 Pure hypercholesterolemia, unspecified; K21.9 Gastro-esophageal reflux disease without esophagitis; D64.9 Anemia, unspecified; Z86.79 Personal history of other diseases of the circulatory system
CPT/HCPCS: 36415; 71045-TC-FY; 80053; 82150; 82248; 83690; 84443; 84484; 85025; 85610; 93005; 93010; 99283-25

== ENCOUNTER 2018-07-21 11:16 | Emergency (ER) | payer OTHER ==
[2018-07-21 11:21] VITALS: BMI 24.0
--- NOTE | 2018-07-21 13:48 | PDOC ---
History of Present Illness - General Chief Complaint: Psychiatric Stated Complaint: NERVOUSNESS Time Seen by Provider: 07/21/18 13:19 - History of Present Illness Initial Comments: 07/21/18 13:36 72 yo F with h/o GERD, anxiety who p/w palpitations. Patient reports intermittent palpitations beginning Sunday (07/19/18), lasting for seconds and resolving spontaneously. Associated with nervousness, nausea without vomiting, which have been ongoing for 2 months. Patient also endorses 2 months of insomnia , sleep disturbances. Recently seen in ED [facility] (06/27/18) for similar presentation, but without palpitations. Patient was on 5 day course Alprazolam as needed, but reports did not help with symptoms. Denies SI, HI, hallucinations. Has not f/w psych in past. Denies medication for anxiety or depression in past. Patient was advised at prior ED encounter ( 06/27/18) to f/ w Dr. Zayas/psych, but did not make apt. Patient lives at home with son who is present at bedside. Patient denies SARABIA, vision change, cough, wheezing, orthopena, PND, leg swelling/ pain, N/V, F,C, CP, SOB, urinary complaints, hematuria, BPR, abdominal pain, diarrhea, constipation, lightheadedness, weakness, sensory changes. PMHx: as noted above. Denies h/o ACS/FL, stent placement, CABG, stress testing PE, DVT ROS: as noted SHx: Denies Etoh, IVDA, tobacco use Allergies: NKDA Past History - Past Medical History Allergies/Adverse Reactions: Allergies Allergy/AdvReac Type Severity Reaction Status Date / Time No Known Drug Allergies Allergy Verified 07/21/18 11:48 Home Medications: Ambulatory Orders Amlodipine Besylate [Norvasc -] 5 mg PO DAILY 09/16/13 Benazepril HCl 10 mg PO DAILY 09/16/13 Simvastatin [Zocor -] 10 mg PO DAILY 09/16/13 Esomeprazole Mag Trihydrate [Nexium] 40 mg PO DAILY PRN 03/21/14 Alprazolam [Xanax] 0.25 mg PO DAILY #5 tablet MDD 1 tab 07/21/18 Folic Acid - 1 mg PO DAILY 07/21/18 Vit B Comp/C/Folic/Iron/Vit E [Vitamin B Complex Tablet] 1 tab PO DAILY Anemia: Yes (RECENTLY DX,IMPROVED DIET AND ANEMIA IMPROVED) Asthma: No Cancer: No 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) CVA: No COPD: No CHF: No Dementia: No Diabetes: Yes GI Disorders: Yes (GERD) Disorders: No HTN: Yes Hypercholesterolemia: Yes Liver Disease: No Seizures: No Thyroid Disease: No - Surgical History Abdominal Surgery: No Appendectomy: No Cardiac Surgery: No Cholecystectomy: No Lung Surgery: No Neurologic Surgery: No Orthopedic Surgery: Yes (LEFT KNEE ARTHROSCOPY 2011) - Immunization History Immunization Up to Date: Yes - Suicide/Smoking/Psychosocial Hx Smoking History: Never smoked Have you smoked in the past 12 months: No If you are a former smoker, when did you quit?: 1970S Information on smoking cessation initiated: No Hx Alcohol Use: No Drug/Substance Use Hx: No Substance Use Type: Alcohol Hx Substance Use Treatment: No Review of Systems - Review of Systems Comments:: 07/21/18 13:50 GENERAL/CONSTITUTIONAL: No fever or chills. No weakness. HEAD, EYES, EARS, NOSE AND THROAT: No change in vision. No ear pain or discharge. No sore throat. CARDIOVASCULAR: + Palpitations. No chest pain or shortness of breath RESPIRATORY: No cough, wheezing, or hemoptysis. GASTROINTESTINAL: No nausea, vomiting, diarrhea or constipation. GENITOURINARY: No dysuria, frequency, or change in urination. MUSCULOSKELETAL: No joint or muscle swelling or pain. No neck or back pain. SKIN: No rash NEUROLOGIC: No headache, vertigo, loss of consciousness, or change in strength/ sensation. ENDOCRINE: No increased thirst. No abnormal weight change HEMATOLOGIC/LYMPHATIC: No anemia, easy bleeding, or history of blood clots. ALLERGIC/IMMUNOLOGIC: No hives or skin allergy. *Physical Exam - Vital Signs Last Vital Signs Temp Pulse Resp BP Pulse Ox 98.3 F 149 H 20 188/96 H 98 07/21/18 11:17 07/21/18 11:17 07/21/18 11:17 07/21/18 11:07/21/18 11:17 - Physical Exam Comments: 07/21/18 13:50 GENERAL: Awake, alert, and fully oriented, in no acute distress HEAD: No signs of trauma, normocephalic, atraumatic EYES: PERRLA, EOMI, sclera anicteric, conjunctiva clear ENT: Auricles normal inspection, hearing grossly normal, nares patent, oropharynx clear without exudates. Moist mucosa NECK: Normal ROM, supple, no lymphadenopathy, JVD, or masses LUNGS: No distress, speaks full sentences, clear to auscultation bilaterally HEART: Regular rate and rhythm, normal S1 and S2, no murmurs, rubs or gallops, peripheral pulses normal and equal bilaterally. ABDOMEN: Soft, nontender, normoactive bowel sounds. No guarding, no rebound. No masses EXTREMITIES : Normal inspection, Normal range of motion, no edema. No clubbing or cyanosis. NEUROLOGICAL: Cranial nerves II through XII grossly intact. Normal speech, normal gait, no focal sensorimotor deficits PSYCH: Affect congruent with mood. Euthymic. Speech nml, non pressured. Hygeine well groomed/well appearing. SKIN: Warm, Dry, normal turgor, no rashes or lesions noted Moderate Sedation - Procedure Monitoring Vital Signs: Procedure Monitoring Vital Signs Temperature 98.3 F 07/21/18 11:17 Pulse Rate 149 H 07/21/18 11:17 Respiratory Rate 20 07/21/18 11:17 Blood Pressure 188/96 H 07/21/18 11:17 O2 Sat by Pulse Oximetry (%) 98 07/21/18 11:17 Heart Score/ECG Review - History History: Moderately suspicious - Electrocardiogram EKG: Non specific repolarization disturbance ED Treatment Course - LABORATORY CBC & Chemistry Diagram: 07/21/18 15:00 07/21/18 15:00 Medical Decision Making - Medical Decision Making 07/21/18 13:48 72 yo F with h/o GERD, HTN, anxiety who p/w palpitations x 2 days. Also endorses 2 months of nervousness, nausea without vomiting. HR 149, BP 188/96, vitals otherwise wnl, AF, A&Ox3. Physical exam unremarkable. Low risk PE based on Weils criteria. Denies SI/HI, hallucinations, cough, wheezing, leg swelling/ pain, N/V, F,C, CP, SOB, urinary complaints, hematuria, BPR, abdominal pain, diarrhea, constipation, lightheadedness, weakness, sensory changes. ACS/FL r/o. Will assess for thyroid dysfunction, cardiac dysarrythmias, hypoglycemia, electrolyte abnml, metabolic and toxic derangements, acid-base disturbances, infection. Ed Course: 07/21/18 14:10 NSR: Sinus tachycardia 135, PVC's, left atrial enlargement, LVH ( similiar to interval EKG 06/27/18 ). 07/21/18 15:48 UA: Neg UDS: Neg WBC: 12.5 CMP: Unremarkable trop: Neg 500 cc NS 07/21/18 16:54 HR 120 07/21/18 17:14 Patient HR 99, Patient endorsed to Dr. Mathias, who will be able to see pt. in clinic after 1:00 PM (07/21/18) Discussed management with patient and need to f/u with PMD 07/21/18 17:23 xanax 0.25 sent to pharmacy *DC/Admit/Observation/Transfer Diagnosis at time of Disposition: Heart palpitations, Anxiety - Discharge Dispostion Condition at time of disposition: Stable Decision to Admit order: No - Prescriptions Prescriptions: Alprazolam [Xanax] 0.25 mg PO DAILY #5 tablet MDD 1 tab - Referrals Referrals: Maris Zayas MD [Staff Physician] - Lakhwinder Mathias RES [Resident] - - Patient Instructions Printed Discharge Instructions: DI for Anxiety -- Adult, DI for Palpitations Additional Instructions: Please return to the emergency department with any new or worsening symptoms or concerns. Please follow up with your primary care physician within 72 hours. Please f/u with psychiatry within 72 hours. Please follow up with Dr. Mathias in office ( [address] ) tomorrow at 1230 PM. Can take Xanax 0.25 mg as needed for symptoms. - Post Discharge Activity - Attestations Physician Attestion: 07/21/18 13:52 I attest to the information provided in this note.
--- NOTE | 2018-07-21 14:00 | PDOC ---
Attending Attestation - HPI HPI: 07/21/18 14:10 The patient is a 72 year old female, with a significant past medical history of HTN, GERD, HLD, and previous ER visit for anxiety, who presents to the emergency department with, 3 days of intermittent palpitations which resolve spontaneously on its own. Patient notes an associated 2 months of nervousness, nausea without emesis, and racing thoughts. Patient was recently evaluated in the ED for similar symptoms on 06/27 at which time she was prescribed Xanax and given psychiatry follow-up. Patient did not follow up with psychiatry and experienced the new onset of palpitations, prompting her arrival to the ED. She denies any suicidal or homicidal ideation. She denies recent fevers, chills , headache or dizziness. She denies recent vomit, diarrhea or constipation. She denies recent dysuria, frequency, urgency or hematuria. She denies recent chest pain or shortness of breath. Allergies: NKDA Primary Care Physician: Elina Grove FNP - Physicial Exam PE: 07/21/18 14:35 "GENERAL: The patient is awake, alert, and fully oriented, Nontoxic - in no acute distress. HEAD: Normocephalic, atraumatic. EYES: extraocular movements intact, sclera anicteric, conjunctiva clear. ENT: Normal voice, +Dry mucous membranes. NECK: Normal range of motion, supple LUNGS: Breath sounds equal, clear to auscultation bilaterally. No wheezes, no rhonchi, no rales. HEART: +Tachycardic. Regular rhythm, without murmur, rub or gallop. ABDOMEN: Soft, nontender, No guarding, no rebound.No CVA tenderness EXTREMITIES: Normal range of motion, no edema. No cyanosis. No erythema, or tenderness. NEUROLOGICAL: No facial assymetry, Normal speech, PSYCH: Normal mood, normal affect. SKIN: Warm, Dry, normal turgor," <Ariana Denton - Last Filed: 07/21/18 14:35> - Resident Resident Name: Chuck Hernandez - ED Attending Attestation I have performed the following: I have examined & evaluated the patient, The case was reviewed & discussed with the resident, I agree w/resident's findings & plan, Exceptions are as noted - Medical Decision Making 07/21/18 13:58 72y F hx of gerd, 'anxiety', htn, presents with palpiations, anxious, nausea, for the past several days. The patient notes that sometimes these come with thoughts of getting older and being alone. She presented today due to symptoms be more unbearable in usual. The patient's notes that she has had a very poor appetite for the past month has had approximate 10 pound weight loss. Notes that the symptoms are episodic and she gets it every couple of days she has been to the ER with similar presentation 4-5 times with a negative workup and was referred to psychiatry but has not yet followed up. Was given an anxiolytic during the prior visit she said she had used it without significant relief of her symptoms. The patient uses occasional alcohol her last use was New Year's Melinda. No any other usage of recreational drugs. She denies any associated chest pain, shortness of breath, lightheadedness, vomiting, dysuria, hematuria, blood per rectum, melena, leg swelling, pain, back pain, dyspnea on exertion. On arrival the patient had a heart rate 149 in triage, and noted to be slightly hypertensive. Patient EKG performed in the ED had a heart rate of 135. She did appear to have dry mucous membranes it is possible her heart rate may be secondary to dehdyration - will hydrate the patient states she is fluid responsive. Obtain blood work to rule out anemia, metabolic derangements or other causes for her tachycardia - although upon review of her laboratory from prior visits they were normal. 07/21/18 18:58 pts labs were unremarkable pts HR improved after hydration and was feeling a bit better recommended the pt fu with her PMD fur further mangement of her symtoms return precautions were discussed <Mayo Avalos - Last Filed: 07/23/18 22:08> Heart Score/ECG Review - ECG Impressions Comment:: 07/21/18 14:51 Twelve-lead EKG was performed and reviewed by me. There is normal sinus rhythm with a rate of 135 The intervals are normal. There is normal R wave progression There are no ST or T wave abnormalities. Impression: Sinus tachycardia <Mayo Avalos - Last Filed: 07/23/18 22:08> Attestations - Attestations 07/21/18 14:10 Documentation prepared by Ariana Denton, acting as medical radiation therapist for Mayo Avalos MD. <Ariana Denton - Last Filed: 07/21/18 14:35>
[2018-07-21 15:20] LABS: BASO % 0.7 % (0-2.0); EOS % 0.1 % (0-4.5); HEMATOCRIT 40.2 % (32.4-45.2); HEMOGLOBIN 13.9 GM/dL (10.7-15.3); LYMPH % 17.8 % (8-40); MCH 27.5 pg (25.7-33.7); MCHC 34.7 g/dl (32.0-36.0); MEAN CELL VOLUME 79.4 fl (80-96); MEAN PLT VOLUME 7.6 fl (7.5-11.1); MONO % 7.9 % (3.8-10.2); NEUT % 73.5 % (42.8-82.8); PLATELET COUNT 331 K/MM3 (134-434); RBC 5.06 M/mm3 (3.60-5.2); RDW 13.8 % (11.6-15.6); WHITE BLOOD COUNT 12.5 K/mm3 (4.0-10.0)
[2018-07-21 15:30] LABS: ALK PHOS 76 U/L (45-117); ANION GAP 8 MMOL/L (8-16); BILIRUBIN,TOTAL 0.4 mg/dL (0.2-1); BLOOD UREA NITROGEN 14 mg/dL (7-18); CALCIUM 9.2 mg/dL (8.5-10.1); CHLORIDE 102 mmol/L (98-107); CO2 26 mmol/L (21-32); CREATININE 0.9 mg/dL (0.55-1.3); GLUCOSE,RANDOM 109 mg/dL (74-106); SGOT/AST 26 U/L (15-37); SGPT/ALT 32 U/L (13-61); SODIUM 137 mmol/L (136-145); TOT PROT 7.8 g/dl (6.4-8.2)
[2018-07-21 15:35] LABS: MAGNESIUM 2.2 mg/dL (1.8-2.4)
[2018-07-21 15:42] LABS: URINE APPEARANCE CLEAR; URINE BILIRUBIN NEGATIVE (<2.0 mg/dL); URINE COLOR YELLOW; URINE GLUCOSE (UA) NEGATIVE (NEGATIVE); URINE KETONE TRACE (NEGATIVE); URINE LEUK ESTERASE TRACE (NEGATIVE); URINE NITRITE NEGATIVE (NEGATIVE); URINE PROTEIN 1+ (NEGATIVE); URINE UROBILINOGEN NEGATIVE mg/dL (0.2-1.0)
[2018-07-21 15:45] LABS: COCAINE, UR NEGATIVE ng/ml (CUTOFF=300); METHADONE, UR NEGATIVE ng/ml (CUTOFF=300); OPIATES, URI NEGATIVE ng/ml (CUTOFF=300); PHENCYCLIDINE,URINE NEGATIVE ng/ml (CUTOFF=25); URINE AMPHETAMINES NEGATIVE ng/ml (CUTOFF=500); URINE BARBITURATES NEGATIVE ng/ml (CUTOFF=200); URINE BENZODIAZEPINES NEGATIVE ng/ml (CUTOFF=200)
[2018-07-21 15:58] LABS: EPI CELLS FEW /HPF (FEW); URINE HYALINE CAST 5 /lpf; URINE MUCUS RARE
[2018-07-21] MEDS ORDERED: SODIUM CHLORIDE 500 ML IV STA (16:43)
--- NOTE | 2018-07-21 16:46 | PN ---
Teaching Attending Note Name of Resident: Lakhwinder Mathias ATTENDING PHYSICIAN STATEMENT I saw and evaluated the patient. I reviewed the resident's note and discussed the case with the resident. I agree with the resident's findings and plan as documented. SUBJECTIVE: OBJECTIVE: Vital Signs Temperature 98.3 F 07/21/18 11:17 Pulse Rate 149 H 07/21/18 11:17 Respiratory Rate 20 07/21/18 11:17 Blood Pressure 188/96 H 07/21/18 11:17 O2 Sat by Pulse Oximetry (%) 98 07/21/18 11:17 GENERAL: The patient is awake, alert, and fully oriented, in no acute distress. HEAD: Normocephalic, atraumatic. EYES: extraocular movements intact, sclera anicteric, conjunctiva clear. ENT: Normal voice, +Dry mucous membranes. NECK: Normal range of motion, supple LUNGS: Breath sounds equal, clear to auscultation bilaterally. No wheezes, no rhonchi, no rales. HEART: +Tachycardic. Regular rhythm, without murmur, rub or gallop. ABDOMEN: Soft, nontender, No guarding, no rebound.No CVA tenderness EXTREMITIES: Normal range of motion, no edema. No cyanosis. No erythema, or tenderness. NEUROLOGICAL: No facial assemetry, Normal speech, PSYCH: Normal mood, normal affect. SKIN: Warm, Dry, normal turgor. WBC 12.5 K/mm3 (4.0-10.0) H 07/21/18 15:00 RBC 5.06 M/mm3 (3.60-5.2) 07/21/18 15:00 Hgb 13.9 GM/dL (10.7-15.3) 07/21/18 15:00 Hct 40.2 % (32.4-45.2) 07/21/18 15:00 MCV 79.4 fl (80-96) L 07/21/18 15:00 MCHC 34.7 g/dl (32.0-36.0) 07/21/18 15:00 RDW 13.8 % (11.6-15.6) 07/21/18 15:00 Plt Count 331 K/MM3 (134-434) D 07/21/18 15:00 MPV 7.6 fl (7.5-11.1) 07/21/18 15:00 CMP Sodium 137 mmol/L (136-145) 07/21/18 15:00 Potassium 4.0 mmol/L (3.5-5.1) 07/21/18 15:00 Chloride 102 mmol/L (98-107) 07/21/18 15:00 Carbon Dioxide 26 mmol/L (21-32) 07/21/18 15:00 Anion Gap 8 MMOL/L (8-16) 07/21/18 15:00 BUN 14 mg/dL (7-18) 07/21/18 15:00 Creatinine 0.9 mg/dL (0.55-1.3) 07/21/18 15:00 Creat Clearance w eGFR 61.21 (>60) 07/21/18 15:00 Random Glucose 109 mg/dL (74-106) H 07/21/18 15:00 Calcium 9.2 mg/dL (8.5-10.1) 07/21/18 15:00 Total Bilirubin 0.4 mg/dL (0.2-1) 07/21/18 15:00 AST 26 U/L (15-37) 07/21/18 15:00 ALT 32 U/L (13-61) 07/21/18 15:00 Alkaline Phosphatase 76 U/L (45-117) 07/21/18 15:00 Total Protein 7.8 g/dl (6.4-8.2) 07/21/18 15:00 Albumin 4.0 g/dl (3.4-5.0) 07/21/18 15:00 CARDIAC ENZYMES Creatine Kinase 92 U/L (26-192) 07/21/18 15:00 Troponin I < 0.02 ng/ml (0.00-0.05) 07/21/18 15:00 Current Medications Generic Name Dose Route Start Last Admin Trade Name Freq PRN Reason Stop Dose Admin Sodium Chloride 500 mls @ 500 mls/hr 07/21/18 16:43 Normal Saline - IV 07/21/18 17:42 ASDIR STA Home Medications Medication Instructions Recorded Amlodipine Besylate [Norvasc -] 5 mg PO DAILY 09/16/13 Benazepril HCl 10 mg PO DAILY 09/16/13 Simvastatin [Zocor -] 10 mg PO DAILY 09/16/13 Esomeprazole Mag Trihydrate 40 mg PO DAILY PRN 03/21/14 [Nexium] Folic Acid - 1 mg PO DAILY 07/21/18 Vit B Comp/C/Folic/Iron/Vit E 1 tab PO DAILY 07/21/18 [Vitamin B Complex Tablet] ASSESSMENT AND PLAN:
[2018-07-21 18:56] VITALS: BP 136/79; PULSE 101; TEMP 98.1
--- NOTE | 2018-07-22 22:52 | EKG ---
Test Reason : Blood Pressure : / mmHG Vent. Rate : 135 BPM Atrial Rate : 135 BPM P-R Int : 138 ms QRS Dur : 066 ms QT Int : 272 ms P-R-T Axes : 055 -06 039 degrees QTc Int : 408 ms SINUS TACHYCARDIA WITH OCCASIONAL PREMATURE VENTRICULAR COMPLEXES POSSIBLE LEFT ATRIAL ENLARGEMENT LEFT VENTRICULAR HYPERTROPHY ABNORMAL ECG WHEN COMPARED WITH ECG OF 27-JUN-2018 04:22, PREMATURE VENTRICULAR COMPLEXES ARE NOW PRESENT VENT. RATE HAS INCREASED BY 51 BPM T WAVE VARIATION Confirmed by JAYLAN TINOCO MD ([id number]) on 07/22/2018 10:51:31 PM Referred By: Confirmed By:JAYLAN TINOCO MD
== END 2018-07-21 18:56 | disposition home or self-care (01) ==
LOC: JER 11:16
PROC: 3E0337Z Introduction of Electrolytic and Water Balance Substance into Peripheral Vein, Percutaneous Approach (ICD-10-PCS; principal; 2018-07-21)
DX: F41.9 Anxiety disorder, unspecified (principal); R00.2 Palpitations; I10 Essential (primary) hypertension; E78.00 Pure hypercholesterolemia, unspecified; D64.9 Anemia, unspecified; K29.00 Acute gastritis without bleeding
CPT/HCPCS: 36415; 80053; 80307; 81003; 81015; 82550; 83735; 84443; 84484; 85025; 93005; 93010; 96360; 99284-25

== ENCOUNTER 2018-12-06 07:41 | Emergency (ER) | payer OTHER ==
[2018-12-06 07:47] VITALS: BMI 23.6
--- NOTE | 2018-12-06 08:01 | PDOC ---
History of Present Illness - General Chief Complaint: Rectal Bleed Stated Complaint: BLOOD IN STOOL Time Seen by Provider: 12/06/18 08:01 History Source: Patient Exam Limitations: No Limitations - History of Present Illness Initial Comments: 12/06/18 08:58 73F w/ PMH of HTN, HLD, carpal tunnel syndrome presents with complaint of blood in stool x 2 episodes. Last night, found streaks of blood on the stool, blood- tinged toilet water, blood on wiping. This morning, had a larger volume of blood in stool. Has had weeks of dizziness and nausea, was given benadryl by PCP. Denies F/C, abdominal pain, diarrhea, recent bowel straining. Had beets last night. Did not eat any strange/new foods. No sick contacts. Does not have regular fiber intake; eating fruits and vegetables sparingly. Drinks 3 bottles of water daily. Had a colonoscopy(Dr Bella, 2018) with findings of benign polyp x1. EGD for dysplesia workup showed ?gastric polyp which was benign. Never had a blood transfusion. Had H pylori years ago and completed full treatment. Denies regular NSAID usage. No anticoagulants. Lives with daughter. Ambulates w/ cane for chronic hip pain. Timing/Duration: 24 hours Severity: mild Associated Symptoms: denies: fever/chills, loss of appetite, malaise Aspirin Received prior to arrival: No: no aspirin today Past History - Travel Traveled outside of the country in the last 30 days: No Close contact w/someone who was outside of country & ill: No - Past Medical History Allergies/Adverse Reactions: Allergies Allergy/AdvReac Type Severity Reaction Status Date / Time No Known Drug Allergies Allergy Verified 12/06/18 07:47 Home Medications: Ambulatory Orders Benazepril HCl 10 mg PO DAILY 09/16/13 Simvastatin [Zocor -] 10 mg PO DAILY 09/16/13 Esomeprazole Mag Trihydrate [Nexium] 40 mg PO DAILY PRN 03/21/14 Alprazolam [Xanax] 0.25 mg PO DAILY PRN #5 tablet MDD 1 07/21/18 Metoprolol Succinate [Toprol Xl] 25 mg PO DAILY #14 tab.er.24h 07/22/18 Anemia: Yes (RECENTLY DX,IMPROVED DIET AND ANEMIA IMPROVED) Asthma: No Cancer: No Cardiac Disorders: No (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) CVA: No COPD: No CHF: No Dementia: No Diabetes: Yes GI Disorders: Yes (GERD) Disorders: No HTN: Yes Hypercholesterolemia: Yes Liver Disease: No Seizures: No Thyroid Disease: No - Surgical History Abdominal Surgery: No Appendectomy: No Cardiac Surgery: No Cholecystectomy: No Lung Surgery: No Neurologic Surgery: No Orthopedic Surgery: Yes (LEFT KNEE ARTHROSCOPY 2011) - Family Disease History Family Disease History: Other: Mother (lung CA) - Reproductive History LMP comment: POOJA in Is Patient Now?: No - Immunization History Immunization Up to Date: Yes - Suicide/Smoking/Psychosocial Hx Smoking Status: No Smoking History: Former smoker (smoked in teenae years) Have you smoked in the past 12 months: No If you are a former smoker, when did you quit?: Hx Alcohol Use: No Drug/Substance Use Hx: No Substance Use Type: Alcohol Hx Substance Use Treatment: No Review of Systems - Review of Systems Able to Perform ROS?: Yes Is the patient limited Burkin[place] proficient: No Constitutional: No: Chills, Fever HEENTM: No: Blurred Vision, Double Vision Respiratory: No: Cough, Shortness of Breath Cardiac (ROS): No: Chest Pain, Irregular Heart Rate, Palpitations ABD/GI: Yes: Constipated, Nausea. No: Diarrhea, Poor Fluid Intake, Vomiting, Tarry Stools : No: Burning, Dysuria Musculoskeletal: Yes: Back Pain (sacral pain) Neurological: Yes: Dizziness. No: Headache, Numbness *Physical Exam - Vital Signs Last Vital Signs Temp Pulse Resp BP Pulse Ox 98.6 F 95 H 16 164/80 98 12/06/18 07:42 12/06/18 07:42 12/06/18 07:42 12/06/18 07:42 12/06/18 07:42 - Physical Exam Comments: 12/06/18 09:49 orthostatic exam: -supine: 153/69, 89 -sittin/68, 81 -standin/65, 74 General Appearance: Yes: Nourished. No: Apparent Distress HEENT: negative: Pale Conjunctivae, Scleral Icterus (R), Scleral Icterus (L) Neck: negative: Tender, Trachea midline, Lymphadenopathy (R), Lymphadenopathy (L ) Respiratory/Chest: positive: Lungs Clear, Normal Breath Sounds. negative: Respiratory Distress, Accessory Muscle Use, Labored Respiration, Crackles, Rales , Rhonchi, Stridor, Wheezing Cardiovascular: positive: Regular Rate, S1, S2. negative: Edema Vascular Pulses: Dorsalis-Pedis (R): 2+, Doralis-Pedis (L): 2+ Rectal Exam: positive: normal rectal tone, other (skin tags, no stool, no blood on glove) Extremity: negative: Pedal Edema, Swelling, Calf Tenderness Integumentary: positive: Dry, Warm Neurologic: positive: Fully Oriented, Alert ED Treatment Course - LABORATORY CBC & Chemistry Diagram: 12/06/18 09:09 12/06/18 09:09 Medical Decision Making - Medical Decision Making 12/06/18 09:47 73F w/ pmh of HTN, HLD, carpal tunnel syndrome w/ complaint of blood in stool - hemodynamically stable, neg orthostatics - labs sent: CBC, CMP, INR, PTT, T&S, FOBT 12/06/18 09:48 12/06/18 11:01 - Hgb 13.2, FOBT neg - spoke to Dr Bella(GI), who believes there is no acute issue. He is able to see the patient in his clinic on Sunday - discussed findings w/ patient. She and daughter are amenable to discharge *DC/Admit/Observation/Transfer Diagnosis at time of Disposition: Lower GI bleed - Discharge Dispostion Disposition: HOME Condition at time of disposition: Stable Decision to Admit order: No - Referrals Referrals: Sher Bella MD [Staff Physician] - - Patient Instructions Printed Discharge Instructions: Gastrointestinal Bleeding Additional Instructions: Your vital signs, and labwork do not suggest a severe or acute bleeding issue that would require a hospitalization. Your symptoms will likely be self- limiting. Alternatively, you may simply be having beet-stained bowel movements. As a precaution, please return to the ED if you experience: -severe multiple episodes of bloody bowel movements with large clots - dark black stools - severe fatigue - severe pallor - Post Discharge Activity
[2018-12-06 08:16] VITALS: PULSE 81; TEMP 98.1
[2018-12-06 09:21] LABS: BASO % 0.6 % (0-2.0); EOS % 0.6 % (0-4.5); HEMATOCRIT 39.8 % (32.4-45.2); HEMOGLOBIN 13.2 GM/dL (10.7-15.3); LYMPH % 17.9 % (8-40); MCH 26.7 pg (25.7-33.7); MCHC 33.2 g/dl (32.0-36.0); MEAN CELL VOLUME 80.3 fl (80-96); MEAN PLT VOLUME 7.5 fl (7.5-11.1); MONO % 6.1 % (3.8-10.2); NEUT % 74.8 % (42.8-82.8); RBC 4.95 M/mm3 (3.60-5.2); RDW 13.7 % (11.6-15.6)
--- NOTE | 2018-12-06 09:22 | PDOC ---
Attending Attestation - Resident Resident Name: Natan Sweet - ED Attending Attestation I have performed the following: I have examined & evaluated the patient, The case was reviewed & discussed with the resident, I agree w/resident's findings & plan, Exceptions are as noted - HPI HPI: 12/06/18 09:18 73y F
[2018-12-06 09:31] LABS: PLATELET COUNT 290 K/MM3 (134-434)
[2018-12-06 09:55] LABS: ALBUMIN 4.4 g/dl (3.4-5.0); BILIRUBIN,TOTAL 0.4 mg/dL (0.2-1); BLOOD UREA NITROGEN 13.9 mg/dL (7-18); CREATININE 0.9 mg/dL (0.55-1.3); POTASSIUM 4.2 mmol/L (3.5-5.1); TOT PROT 8.1 g/dl (6.4-8.2)
--- NOTE | 2018-12-06 09:55 | PDOC ---
Documentation entered by Sabiha Mittal SCRIBE, acting as scribe for Mayo Avalos MD. Mayo Avalos MD: This documentation has been prepared by the scribe, Sabiha Mittal SCRIBE, under my direction and personally reviewed by me in its entirety. I confirm that the documentation accurately reflects all work, treatment, procedures, and medical decision making performed by me. Attending Attestation - Resident Resident Name: Natan Sweet - ED Attending Attestation I have performed the following: I have examined & evaluated the patient, The case was reviewed & discussed with the resident, I agree w/resident's findings & plan, Exceptions are as noted - HPI HPI: 12/06/18 09:25 73y F hx of htn, gerd, hl, presents with complaint of rectal bleeding. The patient had a BM last night that was brown with some reddish blood on the stool and on the tissue, followed by another one today. Pt notes she had some beet juice last night as well. pt deines any fever/chills, abd pain, rectal pain, n/ v. Denies any palpitations, cp, sob but does endorse feeling general weakness. no prior hx of rectal bleeding in the past. Pt has a hx of a colonoscopy ~[address] Hall but is unclear of the results. Pt on ASA. Physical Exam GENERAL: The patient is awake, alert, and fully oriented, Nontoxic - in no acute distress. HEAD: Normocephalic, atraumatic. EYES: extraocular movements intact, sclera anicteric, conjunctiva clear. LUNGS: Breath sounds equal, clear to auscultation bilaterally. No wheezes, no rhonchi, no rales. HEART: Regular rate and rhythm, normal S1 and S2 without murmur, rub or gallop. ABDOMEN: Soft, nontender, No guarding, no rebound. No CVA tenderness RECTAL: per resident note ddx: rectal bleeding vs red stool from beet juice, no signs of melena pending stool guaiac will ck labs to screen for anemia will dw dr. hall - Medical Decision Making 12/06/18 10:09 pts labs reviewed pt not anemic Heart Score/ECG Review - ECG Impressions Comment:: 12/06/18 09:51 Twelve-lead EKG was performed and reviewed by me. There is normal sinus rhythm with a normal rate. rate of [address] wave changes suggestive of acute ischemia
[2018-12-06 10:19] LABS: INR 1.04 (0.83-1.09); PROTHROMBIN TIME (PATIENT) 12.3 SEC (9.7-13.0)
[2018-12-06 10:21] LABS: ACTIVATED PTT 33.3 SECONDS (25.2-36.5)
[2018-12-06 11:35] VITALS: BP 134/76
--- NOTE | 2018-12-06 14:03 | EKG ---
Test Reason : Blood Pressure : / mmHG Vent. Rate : 081 BPM Atrial Rate : 081 BPM P-R Int : 154 ms QRS Dur : 078 ms QT Int : 356 ms P-R-T Axes : 058 -03 018 degrees QTc Int : 413 ms NORMAL SINUS RHYTHM POSSIBLE LEFT ATRIAL ENLARGEMENT LEFT VENTRICULAR HYPERTROPHY ABNORMAL ECG WHEN COMPARED WITH ECG OF 21-JUL-2018 11:15, PREMATURE VENTRICULAR COMPLEXES ARE NO LONGER PRESENT VENT. RATE HAS DECREASED BY 54 BPM Confirmed by JARET KNOX MD ([id number]) on 12/06/2018 2:03:02 PM Referred By: Confirmed By:JARET KNOX MD
== END 2018-12-06 11:30 | disposition home or self-care (01) ==
LOC: JER 07:41
DX: K92.2 Gastrointestinal hemorrhage, unspecified (principal); I10 Essential (primary) hypertension; E78.5 Hyperlipidemia, unspecified; K21.9 Gastro-esophageal reflux disease without esophagitis
CPT/HCPCS: 36415; 80053; 82272; 85025; 85610; 85730; 86850; 86900; 86901; 93005; 93010; 99283-25

== ENCOUNTER 2020-01-16 16:35 | Emergency (ER) | payer OTHER ==
[2020-01-16 16:44] VITALS: TEMP 98.5; BMI 26.2
--- NOTE | 2020-01-16 19:06 | PDOC ---
History of Present Illness - General Chief Complaint: Pain Stated Complaint: STOMACH/ L BACK PAIN Time Seen by Provider: 01/16/20 19:05 History Source: Patient, Old Records Exam Limitations: No Limitations - History of Present Illness Initial Comments: 01/16/20 19:06 Lucero King is a 74F with PMH HTN, HLD, GERD presenting with epigastric pain and lower back pain. has had intermittent lower abdominal pain for the past few weeks last night was standing in the kitchen washing dishes when she began having lower back pain in addition to abdominal pain worse when standing and less when supine tolerating PO but decreased appetite, intermittent nausea without vomiting EGD/colo earlier this year with Lantin normal denies fever, diarrhea, chest pain, SOB, dizziness, palpitations does have urinary frequency and reported hematuria, diagnosed by OBMERVIN Moe referred to urology via OBGYN office phone call today but has not been able to make appointment yet Past History - Medical History Allergies/Adverse Reactions: Allergies Allergy/AdvReac Type Severity Reaction Status Date / Time No Known Drug Allergies Allergy Verified 01/16/20 16:44 Home Medications: Ambulatory Orders Benazepril HCl 10 mg PO DAILY 09/16/13 Simvastatin [Zocor -] 10 mg PO DAILY 09/16/13 Esomeprazole Mag Trihydrate [Nexium] 40 mg PO DAILY PRN 03/21/14 Alprazolam [Xanax] 0.25 mg PO DAILY PRN #5 tablet MDD 1 07/21/18 Metoprolol Succinate [Toprol Xl] 25 mg PO DAILY #14 tab.er.24h 07/22/18 Cephalexin [Keflex] 500 mg PO BID #14 capsule 01/17/20 Anemia: Yes (RECENTLY DX,IMPROVED DIET AND ANEMIA IMPROVED) Asthma: No Cancer: No Cardiac Disorders: No (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) CVA: No COPD: No CHF: No Dementia: No Diabetes: No GI Disorders: Yes (GERD, COLON POLYPS) Disorders: No HTN: Yes Hypercholesterolemia: Yes Liver Disease: No Seizures: No Thyroid Disease: No - Surgical History Abdominal Surgery: No Appendectomy: No Cardiac Surgery: No Cholecystectomy: No Lung Surgery: No Neurologic Surgery: No Orthopedic Surgery: Yes (LEFT KNEE ARTHROSCOPY 2010) - Reproductive History Is Patient Now?: No - Immunization History Immunization Up to Date: Yes - Psycho-Social/Smoking History Smoking Status: No Smoking History: Never smoked Have you smoked in the past 12 months: No If you are a former smoker, when did you quit?: 1970S Information on smoking cessation initiated: Yes - Substance Abuse Hx (Audit-C & DAST Scrn) How often the patient has a drink containing alcohol: Never Score: In Men: 4 or > Positive; In Women: 3 or > Positive: 0 Screen Result (Pos requires Nsg. Audit-10AR): Negative In the last yr the pt used illegal drug/Rx for NonMed reason: No Score: Yes response is considered Positive: 0 Screen Result (Positive result requires Nsg. DAST-10): Negative Review of Systems - Review of Systems Able to Perform ROS?: Yes Constitutional: Yes: Loss of Appetite. No: Chills, Fever HEENTM: No: Symptoms Reported Respiratory: No: Cough, Shortness of Breath Cardiac (ROS): No: Chest Pain, Lightheadedness, Palpitations, Syncope ABD/GI: Yes: Nausea, Poor Appetite, Poor Fluid Intake, Abdominal cramping. No: Constipated, Diarrhea, Vomiting : Yes: Hematuria Musculoskeletal: Yes: Back Pain Integumentary: No: Symptoms Reported Neurological: No: Symptoms reported Endocrine: No: Symptoms Reported Hematologic/Lymphatic: No: Symptoms Reported All Other Systems: Reviewed and Negative *Physical Exam - Vital Signs Last Vital Signs Temp Pulse Resp BP Pulse Ox 98.5 F 115 H 19 180/105 H 98 01/16/20 16:42 01/16/20 16:42 01/16/20 16:42 01/16/20 16:42 01/16/20 16:42 - Physical Exam General Appearance: Yes: Nourished, Appropriately Dressed. No: Apparent Distress HEENT: positive: EOMI, JOSE ENRIQUE, Normal Voice, Symmetrical, TMs Normal, Hearing Grossly Normal. negative: Scleral Icterus (R), Scleral Icterus (L) Neck: positive: Supple. negative: Tender, Rigid, Lymphadenopathy (R), Lymphadenopathy (L) Respiratory/Chest: positive: Lungs Clear, Normal Breath Sounds. negative: Chest Tender, Respiratory Distress, Accessory Muscle Use, Crackles, Rales, Rhonchi, Stridor, Wheezing Cardiovascular: positive: Regular Rhythm, Regular Rate Gastrointestinal/Abdominal: positive: Normal Bowel Sounds, Flat, Soft. negative: Tender, Organomegaly, Pulsatile Mass, Distended, Guarding, Rebound Musculoskeletal: negative: Normal Inspection, CVA Tenderness, Decreased Range of Motion Extremity: positive: Normal Inspection, Normal Range of Motion, Pelvis Stable. negative: Normal Capillary Refill, Tender, Pedal Edema, Swelling, Calf Te nderness, Erythema Integumentary: positive: Normal Color, Dry, Warm Neurologic: positive: Fully Oriented, Alert, Normal Mood/Affect, Normal Response ED Treatment Course - LABORATORY CBC & Chemistry Diagram: 01/16/20 20:09 01/16/20 20:09 - RADIOLOGY Radiograph Interpretation: 01/17/20 00:38 Madiha Washington MD wrote on Jan 17, 2020 at 12:23 AM: Referring Physician: LINWOOD QUIGLEY Patient Name: LUCERO KING THIS IS A PRELIMINARY REPORT DATE OF SERVICE: 2020-01-16 23:33:35 IMAGES: [id number] EXAM: CTA CHEST ABD PEL W/WO CONT HISTORY: Low abdominal pain, hypertensive, and tachycardia. COMPARISON: None. FINDINGS: The precontrast exam no intramural hyperdensity is seen within the aortic wall. Minimal atherosclerotic calcifications are noted in the distal abdominal aorta and aortic arch. The aorta is normal in caliber throughout its course in the chest and abdomen. Following contrast administration there is no evidence of aortic dissection. Most of the abdominal branches, great vessels, iliac and imaged aspects of the femoral arteries are also normal in caliber without evidence of dissection. There is however, focal angulation seen of the origin of the celiac axis with narrowing at that level and poststenotic dilatation, best seen on sagittal postcontrast image 60. Unremarkable thyroid gland. The heart is normal in size and no pericardial effusion is seen. No lymphadenopathy is noted in the chest. No definite intraluminal defects are seen in the pulmonary arteries to suggest PE. No pneumothorax. Volume dependent atelectatic changes. Noncalcified nodule in the left upper lobe demonstrating a mildly lobulated contour and measuring 7.8 mm AP, 8.2 mm transverse, and 10 mm craniocaudad. No acute infiltrates or effusions. Unremarkable liver. Tiny hypodensity in the anterolateral spleen on series 9 image 78 which remains hypodense on the delayed dataset. Unremarkable gallbladder. Prominence of the common bile duct. Visualization of normal caliber pancreatic duct. No pancreatic masses noted. Unremarkable adrenals. Cortical thinning noted in both kidneys. Normal cortical enhancement. Hypodense lesions in both kidneys, cortical 1 measuring up to 8 mm in the upper pole with a larger peripelvic cyst in the upper pole measuring 18 mm. No renal or ureteral calculi and no hydronephrosis. Partial obscuration of the urinary bladder due to artifacts from left hip prosthesis. No bowel obstruction noted. No evidence of appendicitis. Sigmoid diverticulosis without evidence of diverticulitis. No lymphadenopathy in the abdomen/pelvis. Small umbilical hernia containing fat. Focal atrophy of the anterior left gluteal musculature by related to left hip prosthesis with stranding in the overlying subcutaneous soft tissues. No ascites. Uterus is not identified and may be surgically absent. No abnormal adnexal masses are noted. Degenerative changes are seen in the imaged spine and right hip. Degenerative changes also seen in bilateral shoulders. There is grade 1 anterolisthesis of L5 over S1 with what appears to be a partial left L5 spondylolysis. There is a disc herniation of the extrusion type with superior migration noted at L4-L5 which impinges on the spinal canal and with facet hypertrophy results in foraminal stenosis. IMPRESSION: 1. No evidence of aortic dissection. 2. Findings involving the proximal celiac artery indicative of median arcuate ligament syndrome. 3. Nodule measuring up to 10 mm in the left upper lobe. Options include PET/CT scan or short-term follow-up in 3 months. 4. Prominent common bile duct. 5. Bilateral renal cyst. 6. 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 Other findings as above. At L4-L5 impinging the spinal canal Medical Decision Making - Medical Decision Making 01/16/20 19:06 Patient reports abdominal and back pain intermittently with nausea, poor appetite, urinary frequency, and reported hematuria. Urine sample at bedside not grossly red. Concerned for AAA vs. malignancy vs. gastritis vs. pancreatitis vs. GB pathology vs. diverticultis. Ordering CBC/CMP/CP/ECG/lipase/CXR/UA/UC, as well as CTA CAP for evaluation of AAA vs. dissection. ECG HR 82 Qtc 446 NSR with PAC no DMITRIY/D or TWI CXR unremarkable Labs grossly unremarkable. UA no blood but 1+ protein and LE, contaminated specimen. CTA unremarkable for aortic pathlology, but report suggests median arcuate ligament syndrome. No other acute abdominal pathology requiring admission noted. Discharged home with Keflex Rx for presumed UTI and GI f/u for abdominal pain. Discharge - Discharge Information Problems reviewed: Yes Clinical Impression/Diagnosis: Median arcuate ligament syndrome UTI (urinary tract infection) Qualifiers: Urinary tract infection type: acute cystitis Hematuria presence: without hematuria Qualified Code(s): N30.00 - Acute cystitis without hematuria Disposition: HOME - Additional Discharge Information Prescriptions: Cephalexin [Keflex] 500 mg PO BID #14 capsule - Follow up/Referral Referrals: Bryce Prabhakar MD [Primary Care Provider] - Phu Figueroa MD [Staff Physician] - Sher Bella MD [Staff Physician] - - Patient Discharge Instructions Patient Printed Discharge Instructions: DI for Urinary Tract Infection (UTI), DI for Abdominal Pain-Adult Additional Instructions: Today you were evaluated for abdominal pain. Your labs do not show any problems. Your urine shows that you have a urinary tract infection, so we are started you on an antibiotic called Keflex. Your CT scan shows a finding called MEDIAN ARCUATE LIGAMENT SYNDROME, which is a rare condition in which after eating, a part of your abdomen presses on an artery and causes pain. You should see a dining host for further evaluation. Your CT scan also shows a nodule in your left lung that needs to be followed-up with a lung doctor. Referrals to both have been given. First, please see your regular doctor for further care. If you experience worsening pain, nausea, vomiting, or any other new or concerning symptoms, please return to the emergency room. - Post Discharge Activity
[2020-01-16] MEDS ORDERED: SODIUM CHLORIDE 0.9% 500 ML INFUS.BAG IV ONE (19:50)
[2020-01-16 20:13] LABS: EPI CELLS 12 /uL (0-25.1); HYALINE CASTS 1 /uL (0-3.1); URINE APPEARANCE CLEAR; URINE BACTERIA 21 /uL (0-1359); URINE BILIRUBIN NEGATIVE (NEGATIVE); URINE COLOR YELLOW; URINE GLUCOSE (UA) NEGATIVE (NEGATIVE); URINE KETONE NEGATIVE (NEGATIVE); URINE LEUK ESTERASE 1+ (NEGATIVE); URINE NITRITE NEGATIVE (NEGATIVE); URINE PROTEIN 1+ (NEGATIVE); URINE RBC 13 /uL (0-23.9); URINE UROBILINOGEN 0.2 mg/dL (0.2-1.0); URINE WBC 55 /uL (0-25.8)
[2020-01-16 20:44] LABS: BASO % 0.4 % (0-2.0); EOS % 0.1 % (0-4.5); HEMATOCRIT 39.6 % (32.4-45.2); HEMOGLOBIN 13.1 GM/dL (10.7-15.3); LYMPH % 18.3 % (8-40); MCH 25.8 pg (25.7-33.7); MCHC 33.2 g/dl (32.0-36.0); MEAN CELL VOLUME 77.7 fl (80-96); MEAN PLT VOLUME 7.6 fl (7.5-11.1); MONO % 7.2 % (3.8-10.2); PLATELET COUNT 252 K/MM3 (134-434); RBC 5.09 M/mm3 (3.60-5.2); WHITE BLOOD COUNT 11.3 K/mm3 (4.0-10.0)
[2020-01-16 20:51] LABS: INR 1.12 (0.83-1.09); PROTHROMBIN TIME (PATIENT) 13.2 SEC (9.7-13.0)
[2020-01-16 20:53] LABS: ACTIVATED PTT 31.6 SECONDS (25.2-36.5)
[2020-01-16 21:03] LABS: ALBUMIN 4.1 g/dl (3.4-5.0); ALK PHOS 62 U/L (45-117); ANION GAP 8 MMOL/L (8-16); BILIRUBIN,TOTAL 0.5 mg/dL (0.2-1); BLOOD UREA NITROGEN 9.6 mg/dL (7-18); CALCIUM 9.3 mg/dL (8.5-10.1); CHLORIDE 103 mmol/L (98-107); CO2 27 mmol/L (21-32); CREATININE 1.1 mg/dL (0.55-1.3); GLUCOSE,RANDOM 144 mg/dL (74-106); LIPASE 180 U/L (73-393); POTASSIUM 3.4 mmol/L (3.5-5.1); SGOT/AST 19 U/L (15-37); SGPT/ALT 19 U/L (13-61); SODIUM 137 mmol/L (136-145); TOT PROT 8.5 g/dl (6.4-8.2)
[2020-01-16] MEDS ORDERED: ACETAMINOPHEN 1000 MG/100 ML VIAL (NON FORMULARY) IVPB ONE (22:34)
[2020-01-16] MEDS ORDERED: ACETAMINOPHEN INJECTION 100 ML IVPB ONE (22:42)
[2020-01-16 22:58] VITALS: BP 161/72; PULSE 84
--- NOTE | 2020-01-16 23:02 | PDOC ---
Documentation entered by Kalyani Velasquez SCRIBE, acting as scribe for Sandra Wharton MD. Sandra Wharton MD: This documentation has been prepared by the Eva cisneros Xhesika, SCRIBE, under my direction and personally reviewed by me in its entirety. I confirm that the documentation accurately reflects all work, treatment, procedures, and medical decision making performed by me. Attending Attestation - Resident Resident Name: JyotiJean - ED Attending Attestation I have performed the following: I have examined & evaluated the patient, The case was reviewed & discussed with the resident, I agree w/resident's findings & plan, Exceptions are as noted - HPI HPI: 01/16/20 19:10 The patient is a 74 year old female, with a significant past medical history of HTN, GERD, HLD, who presents to the emergency department with intermittent periumbilical and lower abdominal pain x1-2 weeks. Pt states 2 weeks ago she was standing in the kitchen when she endorsed sudden onset lower back pain. Pt states her back pain is worse with standing and alleviated when lying down. Pt reports decreased appetite and nausea, but no vomiting. Also reports urinary frequncy and intermittent hematuria. Pt reports she saw Dr. Moe and was diagnosed with hematuria and referred to a urologist. Pt states she had a EGD and colonoscopy earlier this year that were reportedly normal. She denies recent fevers, chills, headache or dizziness. She denies recent vomit, diarrhea or constipation. She denies recent dysuria, frequency, urgency. She denies recent chest pain or shortness of breath. Allergies: NKDA Primary Care Physician: Bryce Pacheco - Physicial Exam PE: 01/16/20 22:51 GENERAL: Awake, alert, and fully oriented, in no acute distress EYES: PERRLA, EOMI, sclera anicteric, conjunctiva clear ENT: AOropharynx clear without exudates. Moist mucosa NECK: Normal ROM, supple, no lymphadenopathy, JVD, or masses LUNGS: Breath sounds equal, clear to auscultation bilaterally. No wheezes, and no crackles HEART: Regular rate and rhythm, normal S1 and S2, no murmurs, rubs or gallops ABDOMEN: Soft, nontender, but possible palpable mass vs stool in suprapubic area? normoactive bowel sounds. No guarding, no rebound. EXTREMITIES: Normal range of motion, no edema. No clubbing or cyanosis. No cords, erythema, or tenderness NEUROLOGICAL: Normal speech, cranial nerves intact, negative pronator drift, 5/5 strength in all 4 extremities, normal sensation to light touch in all 4 extremities, normal cerebellar exam, normal gait SKIN: Warm, Dry, normal turgor, no rashes or lesions noted. - Medical Decision Making 01/16/20 22:51 74yo F presents to the ED with abdominal pain, poor appetite, intermittent hematuria, and urinary freq DDx includes malignancy vs AAA vs aortic dissection vs UTI vs colitis vs diverticulitis Plan: -labs -UA -CTA -pain control -reassess Heart Score/ECG Review #1 01/16/20 23:02 Twelve-lead EKG was performed and reviewed by me. Sinus rhythm, rate 82. Normal axis. No ST elevations. Discharge - Follow up/Referral Referrals: Bryce Prabhakar MD [Primary Care Provider] - - Patient Discharge Instructions - Post Discharge Activity
--- NOTE | 2020-01-17 00:28 | PDOC ---
*Physical Exam - Vital Signs Last Vital Signs Temp Pulse Resp BP Pulse Ox 98.5 F 84 18 161/72 98 01/16/20 16:42 01/16/20 22:57 01/16/20 22:57 01/16/20 22:57 01/16/20 22:57 ED Treatment Course - LABORATORY CBC & Chemistry Diagram: 01/16/20 20:09 01/16/20 20:09 - ADDITIONAL ORDERS Additional order review: Laboratory Results 01/16/20 01/16/20 01/16/20 20:09 20:09 20:09 PT with INR 13.20 H INR 1.12 H PTT (Actin FS) 31.6 Sodium 137 Potassium 3.4 L Chloride 103 Carbon Dioxide 27 Anion Gap 8 BUN 9.6 Creatinine 1.1 Est GFR (CKD-EPI)AfAm 56.48 Est GFR (CKD-EPI)NonAf 48.73 Random Glucose 144 H Lactic Acid 1.9 Calcium 9.3 Total Bilirubin 0.5 AST 19 ALT 19 Alkaline Phosphatase 62 Creatine Kinase 216 H Creatine Kinase Index 0.9 CK-MB (CK-2) 2.1 Troponin I < 0.02 Total Protein 8.5 H Albumin 4.1 Lipase 180 Urine Color Urine Appearance Urine pH Ur Specific [place] Urine Protein Urine Glucose (UA) Urine Ketones Urine Blood Urine Nitrite Urine Bilirubin Urine Urobilinogen Ur Leukocyte Esterase Urine WBC (Auto) Urine RBC (Auto) Urine Casts (Auto) U Epithel Cells (Auto) Urine Bacteria (Auto) 01/16/20 19:43 PT with INR INR PTT (Actin FS) Sodium Potassium Chloride Carbon Dioxide Anion Gap BUN Creatinine Est GFR (CKD-EPI)AfAm Est GFR (CKD-EPI)NonAf Random Glucose Lactic Acid Calcium Total Bilirubin AST ALT Alkaline Phosphatase Creatine Kinase Creatine Kinase Index CK-MB (CK-2) Troponin I Total Protein Albumin Lipase Urine Color Yellow Urine Appearance Clear Urine pH 5.0 D Ur Specific [place] 1.014 Urine Protein 1+ H Urine Glucose (UA) Negative Urine Ketones Negative Urine Blood Negative Urine Nitrite Negative Urine Bilirubin Negative Urine Urobilinogen 0.2 Ur Leukocyte Esterase 1+ H Urine WBC (Auto) 55 Urine RBC (Auto) 13 Urine Casts (Auto) 1 U Epithel Cells (Auto) 12 Urine Bacteria (Auto) 21 01/16/20 20:09 RBC 5.09 MCV 77.7 L MCHC 33.2 RDW 14.0 MPV 7.6 Neutrophils % 74.0 Lymphocytes % 18.3 Monocytes % 7.2 Eosinophils % 0.1 D Basophils % 0.4 - Medications Given in the ED: ED Medications Discontinued Medications Generic Name Dose Route Start Last Admin Trade Name Idania PRN Reason Stop Dose Admin Acetaminophen 1,000 mg 01/16/20 22:34 01/16/20 22:55 Ofirmev Injection - IVPB 01/16/20 22:35 1,000 mg ONCE ONE Administration Sodium Chloride 1,000 ml 01/16/20 19:50 01/16/20 20:13 Normal Saline - IV 01/16/20 19:51 1,000 ml ONCE ONE Administration Medical Decision Making - Medical Decision Making 01/17/20 00:26 Patient Name: EVER KING THIS IS A PRELIMINARY REPORT DATE OF SERVICE: 2020-01-16 23:33:35 IMAGES: [id number] EXAM: CTA CHEST ABD PEL W/WO CONT HISTORY: Low abdominal pain, hypertensive, and tachycardia. COMPARISON: None. FINDINGS: The precontrast exam no intramural hyperdensity is seen within the aortic wall. Minimal atherosclerotic calcifications are noted in the distal abdominal aorta and aortic arch. The aorta is normal in caliber throughout its course in the chest and abdomen. Following contrast administration there is no evidence of aortic dissection. Most of the abdominal branches, great vessels, iliac and imaged aspects of the femoral arteries are also normal in caliber without evidence of dissection. There is however, focal angulation seen of the origin of the celiac axis with narrowing at that level and poststenotic dilatation, best seen on sagittal postcontrast image 60. Unremarkable thyroid gland. The heart is normal in size and no pericardial effusion is seen. No lymphadenopathy is noted in the chest. No definite intraluminal defects are seen in the pulmonary arteries to suggest PE. No pneumothorax. Volume dependent atelectatic changes. Noncalcified nodule in the left upper lobe demonstrating a mildly lobulated contour and measuring 7.8 mm AP, 8.2 mm transverse, and 10 mm craniocaudad. No acute infiltrates or effusions. Unremarkable liver. Tiny hypodensity in the anterolateral spleen on series 9 image 78 which remains hypodense on the delayed dataset. Unremarkable gallbladder. Prominence of the common bile duct. Visualization of normal caliber pancreatic duct. No pancreatic masses noted. Unremarkable adrenals. Cortical thinning noted in both kidneys. Normal cortical enhancement. Hypodense lesions in both kidneys, cortical 1 measuring up to 8 mm in the upper pole with a larger peripelvic cyst in the upper pole measuring 18 mm. No renal or ureteral calculi and no hydronephrosis. Partial obscuration of the urinary bladder due to artifacts from left hip prosthesis. No bowel obstruction noted. No evidence of appendicitis. Sigmoid diverticulosis without evidence of diverticulitis. No lymphadenopathy in the abdomen/pelvis. Small umbilical hernia containing fat. Focal atrophy of the anterior left gluteal musculature by related to left hip prosthesis with stranding in the overlying subcutaneous soft tissues. No ascites. Uterus is not identified and may be surgically absent. No abnormal adnexal masses are noted. Degenerative changes are seen in the imaged spine and right hip. Degenerative changes also seen in bilateral shoulders. There is grade 1 anterolisthesis of L5 over S1 with what appears to be a partial left L5 spondylolysis. There is a disc herniation of the extrusion type with superior migration noted at L4-L5 which impinges on the spinal canal and with facet hypertrophy results in foraminal stenosis. IMPRESSION: 1. No evidence of aortic dissection. 2. Findings involving the proximal celiac artery indicative of median arcuate ligament syndrome. 3. Nodule measuring up to 10 mm in the left upper lobe. Options include PET/CT scan or short-term follow-up in 3 months. 4. Prominent common bile duct. 5. Bilateral renal cyst. 6. 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 Other findings as above. At L4-L5 impinging the spinal canal Discharge - Discharge Information Problems reviewed: Yes Clinical Impression/Diagnosis: Median arcuate ligament syndrome UTI (urinary tract infection) Qualifiers: Urinary tract infection type: acute cystitis Hematuria presence: without hematuria Qualified Code(s): N30.00 - Acute cystitis without hematuria Disposition: HOME - Additional Discharge Information Prescriptions: Cephalexin [Keflex] 500 mg PO BID #14 capsule - Follow up/Referral Referrals: Bryce Prabhakar MD [Primary Care Provider] - - Patient Discharge Instructions Patient Printed Discharge Instructions: DI for Urinary Tract Infection (UTI), DI for Abdominal Pain-Adult Additional Instructions: Today you were evaluated for abdominal pain. Your labs do not show any problems. Your urine shows that you have a urinary tract infection, so we are started you on an antibiotic called Keflex. Your CT scan shows a finding called MEDIAN ARCUATE LIGAMENT SYNDROME, which is a rare condition in which after eating, a part of your abdomen presses on an artery and causes pain. You should see a g astroenterologist for further evaluation. Your CT scan also shows a nodule in your left lung that needs to be followed-up with a lung doctor. Referrals to both have been given. If you experience worsening pain, nausea, vomiting, or any other new or concerning symptoms, please return to the emergency room. - Post Discharge Activity
[2020-01-17] MEDS ORDERED: CEPHALEXIN MONOHYDRATE 500 MG CAPSULE (UD) PO ONE (00:29)
[2020-01-17] MEDS ORDERED: CEPHALEXIN MONOHYDRATE 500 MG CAPSULE (UD) ONE (00:37)
--- NOTE | 2020-01-19 11:35 | EKG ---
Test Reason : Blood Pressure : / mmHG Vent. Rate : 082 BPM Atrial Rate : 082 BPM P-R Int : 164 ms QRS Dur : 084 ms QT Int : 382 ms P-R-T Axes : 053 -05 013 degrees QTc Int : 446 ms SINUS RHYTHM WITH PREMATURE ATRIAL COMPLEXES POSSIBLE LEFT ATRIAL ENLARGEMENT LEFT VENTRICULAR HYPERTROPHY ABNORMAL ECG WHEN COMPARED WITH ECG OF 06-DEC-2018 07:47, PREMATURE ATRIAL COMPLEXES ARE NOW PRESENT Confirmed by ALEJANDRINA DRISCOLL, JAYLAN ([id number]) on 01/19/2020 11:34:34 AM Referred By: Confirmed By:JAYLAN TINOCO MD
== END 2020-01-17 01:26 | disposition home or self-care (01) ==
LOC: JER 16:35
PROC: 3E033NZ Introduction of Analgesics, Hypnotics, Sedatives into Peripheral Vein, Percutaneous Approach (ICD-10-PCS; principal; 2020-01-16)
DX: N30.00 Acute cystitis without hematuria (principal)
CPT/HCPCS: 36415; 71045-TC-FY; 71275-TC; 74174-TC; 80053; 81003; 82550; 82553; 83605; 83690; 84484; 85025; 85610; 85730; 87086; 93005; 93010; 99285-25; J0131; Q9967; U0003

== ENCOUNTER 2021-10-07 16:29 | Emergency (ER) | payer OTHER ==
[2021-10-07 16:58] VITALS: BP 174/87; PULSE 110; TEMP 98.2; BMI 22.3
[2021-10-07] MEDS ORDERED: IBUPROFEN 600 MG TABLET (FP) PO ONE (18:56)
[2021-10-07] MEDS ORDERED: IBUPROFEN 400 MG TABLET (FP) PO ONE (19:07)
== END 2021-10-07 19:03 | disposition home or self-care (01) ==
LOC: JER 16:29
DX: S09.90XA Unspecified injury of head, initial encounter (principal); W01.0XXA Fall on same level from slipping, tripping and stumbling without subsequent striking against object, initial encounter
CPT/HCPCS: 70450-TC; 99283-25

== ENCOUNTER 2022-04-11 16:47 | Emergency (ER) | payer OTHER ==
[2022-04-11 17:13] VITALS: BP 137/80; PULSE 87; RESP 16; TEMP 97.8; BMI 24.0
[2022-04-11] MEDS ORDERED: MAG HYDROX/AL HYDROX/SIMETH 30 ML UNIT-DOSE CUP PO ONE (17:49)
[2022-04-11] MEDS ORDERED: ACETAMINOPHEN 1000 MG/100 ML BAG IVPB ONE (17:49)
[2022-04-11] MEDS ORDERED: FAMOTIDINE 20 MG/50 ML IVPB 20 MG/50 ML MG IVPB ONE (17:49)
[2022-04-11] MEDS ORDERED: ACETAMINOPHEN INJECTION 100 ML IVPB ONE (18:39)
[2022-04-11] MEDS ORDERED: FAMOTIDINE 10 MG/ML VIAL IVPB ONE (18:39)
[2022-04-11] MEDS ORDERED: MAG HYDROX/AL HYDROX/SIMETH 30 ML UNIT-DOSE CUP ONE (18:39)
[2022-04-11 19:24] LABS: BASO % 0.3 % (0-2.0); EOS % 0.3 % (0-4.5); HEMOGLOBIN 12.2 GM/dL (10.7-15.3); MCHC 32.1 g/dl (32.0-36.0); MEAN PLT VOLUME 7.2 fl (7.5-11.1); MONO % 6.2 % (3.8-10.2); NEUT % 79.2 % (42.8-82.8); PLATELET COUNT 237 10^3/uL (134-434); RBC 4.88 M/mm3 (3.60-5.2); RDW 14.6 % (11.6-15.6); WHITE BLOOD COUNT 8.8 K/mm3 (4.0-10.0)
[2022-04-11 19:49] LABS: ALBUMIN 3.4 g/dl (3.4-5.0); BLOOD UREA NITROGEN 10.3 mg/dL (7-18); CALCIUM 9.3 mg/dL (8.5-10.1)
[2022-04-11 19:52] LABS: CREATININE 0.9 mg/dL (0.55-1.3)
[2022-04-11 19:53] LABS: BILIRUBIN,TOTAL 0.7 mg/dL (0.2-1)
[2022-04-11 22:19] LABS: EPI CELLS 17 /uL (0-25.1); HYALINE CASTS 0 /uL (0-3.1); URINE APPEARANCE CLEAR; URINE BACTERIA 363 /uL (0-1359); URINE BILIRUBIN NEGATIVE (NEGATIVE); URINE COLOR YELLOW; URINE GLUCOSE (UA) NEGATIVE (NEGATIVE); URINE KETONE NEGATIVE (NEGATIVE); URINE LEUK ESTERASE 2+ (NEGATIVE); URINE NITRITE NEGATIVE (NEGATIVE); URINE PROTEIN NEGATIVE (NEGATIVE); URINE RBC 9 /uL (0-23.9); URINE WBC 33 /uL (0-25.8)
== END 2022-04-12 00:02 | disposition home or self-care (01) ==
LOC: JER 16:47
PROC: 3E033GC Introduction of Other Therapeutic Substance into Peripheral Vein, Percutaneous Approach (ICD-10-PCS; principal; 2022-04-11)
DX: R10.13 Epigastric pain (principal); U07.1 COVID-19
CPT/HCPCS: 0241U-QW; 36415; 71045-TC-FY; 74177-TC; 80053; 81003; 83690; 84484; 85025; 87086; 93005; 93010; 99285-25

== ENCOUNTER 2023-03-14 11:13 | Emergency (ER) | payer OTHER ==
[2023-03-14 11:27] VITALS: RESP 18; TEMP 98; BMI 22.3
[2023-03-14] MEDS ORDERED: metoPROLOL SUCCINATE 25 MG TAB.SR.24H (FP) PO ONE ×2 (13:16→13:18)
[2023-03-14 14:01] LABS: BASO % 0.5 % (0-2.0); EOS % 0.1 % (0-4.5); HEMATOCRIT 40.8 % (32.4-45.2); HEMOGLOBIN 13.5 GM/dL (10.7-15.3); LYMPH % 12.5 % (8-40); MCH 25.7 pg (25.7-33.7); MEAN CELL VOLUME 77.7 fl (80-96); MEAN PLT VOLUME 7.4 fl (7.5-11.1); MONO % 7.6 % (3.8-10.2); NEUT % 79.3 % (42.8-82.8); PLATELET COUNT 305 10^3/uL (134-434); RBC 5.24 M/mm3 (3.60-5.2); RDW 14.2 % (11.6-15.6); WHITE BLOOD COUNT 11.6 K/mm3 (4.0-10.0)
[2023-03-14 14:16] LABS: POTASSIUM 3.8 mmol/L (3.5-5.1)
[2023-03-14 14:17] LABS: CALCIUM 9.1 mg/dL (8.5-10.1)
[2023-03-14 14:18] LABS: BLOOD UREA NITROGEN 13.2 mg/dL (7-18); MAGNESIUM 2.1 mg/dL (1.8-2.4)
[2023-03-14 14:21] LABS: CREATININE 1.2 mg/dL (0.55-1.3)
[2023-03-14 14:23] LABS: BILIRUBIN,TOTAL 0.6 mg/dL (0.2-1)
[2023-03-14 16:24] VITALS: BP 142/69; PULSE 92
== END 2023-03-14 16:34 | disposition home or self-care (01) ==
LOC: JER 11:13
DX: I10 Essential (primary) hypertension (principal); R00.2 Palpitations; R11.0 Nausea; R00.0 Tachycardia, unspecified
CPT/HCPCS: 36415; 71045-TC-FY; 80053; 83735; 84439; 84443; 84484; 85025; 93005; 93010; 99285-25

== ENCOUNTER 2024-02-28 04:33 | Day surgery (SDC) | payer OTHER ==
[2024-02-25 16:14] VITALS: BMI 26.4
[2024-02-28] MEDS ORDERED: BUPIVACAINE HCL/PF 0.75% 10 ML VIAL ONE (07:10)
[2024-02-28] MEDS ORDERED: DEXAMETHASONE SOD PHOSPHATE 10 MG/1 ML VIAL ONE (07:10)
[2024-02-28] MEDS ORDERED: LIDOCAINE HCL/PF 1% SDV 5ML VIAL ONE (07:10)
[2024-02-28] MEDS ORDERED: LIDOCAINE HCL/PF 2% SDV 5ML VIAL ONE (07:10)
[2024-02-28] MEDS ORDERED: ACETAMINOPHEN 500 MG TABLET (FP) PO PRN (09:14)
[2024-02-28] MEDS: LIDOCAINE HCL 1% PRESERVATIVE FREE - 30ML VIAL IJ ONE ×2 (11:20)
[2024-02-28] MEDS: DEXAMETHASONE SOD PHOSPHATE 10 MG/1 ML VIAL IM ONE ×2 (11:27)
[2024-02-28] MEDS: LIDOCAINE HCL/PF 2% SDV 5ML VIAL INF ONE ×2 (11:27)
[2024-02-28] MEDS: BUPIVACAINE HCL/PF 0.75% 10 ML VIAL NR ONE ×2 (11:27)
[2024-02-28 12:00] VITALS: RESP 18; TEMP 97.7
[2024-02-28 12:24] VITALS: BP 126/65; PULSE 66
== END 2024-02-28 12:20 | disposition home or self-care (01) ==
LOC: JASU-SURG 04:33
PROVIDERS: ATTEND Pain Medicine Pain Medicine
PROC: 015B3ZZ Destruction of Lumbar Nerve, Percutaneous Approach (ICD-10-PCS; principal; 2024-02-28 10:30)
DX: M47.816 Spondylosis without myelopathy or radiculopathy, lumbar region (principal)
CPT/HCPCS: 76000-TC-FY; J1100

== ENCOUNTER 2024-04-17 04:22 | Day surgery (SDC) | payer OTHER ==
[2024-04-16 13:27] VITALS: BMI 26.4
[2024-04-17] MEDS ORDERED: BUPIVACAINE HCL/PF 0.5% (5MG/ML) 10 ML VIAL ONE (07:34)
[2024-04-17] MEDS ORDERED: DEXAMETHASONE SOD PHOSPHATE 10 MG/1 ML VIAL ONE (07:35)
[2024-04-17] MEDS ORDERED: LIDOCAINE HCL 2% (20ML MULTI-DOSE VIAL) ONE (11:22)
[2024-04-17] MEDS ORDERED: LIDOCAINE HCL/PF 2% SDV 5ML VIAL ONE (11:23)
[2024-04-17] MEDS ORDERED: BUPIVACAINE HCL/PF 0.75% 10 ML VIAL ONE (11:23)
[2024-04-17 12:34] VITALS: BP 138/74; PULSE 67; RESP 16; TEMP 98
[2024-04-17] MEDS ORDERED: ACETAMINOPHEN 500 MG TABLET (FP) PO PRN (17:58)
== END 2024-04-17 12:55 | disposition home or self-care (01) ==
LOC: JASU-SURG 04:22
PROVIDERS: ATTEND Pain Medicine Pain Medicine
PROC: 015B3ZZ Destruction of Lumbar Nerve, Percutaneous Approach (ICD-10-PCS; principal; 2024-04-17 10:15)
DX: M47.816 Spondylosis without myelopathy or radiculopathy, lumbar region (principal)
CPT/HCPCS: 76000-TC-FY; J1100

== ENCOUNTER 2024-09-23 11:39 | Emergency (ER) | payer OTHER ==
[2024-09-23 12:06] VITALS: RESP 19; TEMP 97.7; BMI 27.4
[2024-09-23] MEDS ORDERED: FAMOTIDINE 20 MG/50 ML IVPB 20 MG/50 ML MG IVPB ONE (12:54)
[2024-09-23] MEDS ORDERED: MAG HYDROX/AL HYDROX/SIMETH 30 ML UNIT-DOSE CUP ONE (12:54)
[2024-09-23 13:44] LABS: ABSOLUTE IMMATURE GRANULOCYTES 0.03 x10^3/uL (0.0-0.031); BASOPHILS # 0.07 x10^3/uL (0.01-0.08); EOSINOPHIL % 0.9 % (0.7-5.8); EOSINOPHILS # 0.08 x10^3/uL (0.04-0.36); HEMATOCRIT 46.1 % (34.1-44.9); HEMOGLOBIN 14.4 g/dL (11.2-15.7); MCHC 31.2 g/dl (32.2-35.5); MEAN CELL VOLUME 82.3 fl (79.4-94.8); MEAN PLT VOLUME 9.2 fl (9.4-12.3); MONOCYTE # 0.65 x10^3/uL (0.24-0.86); MONOCYTE % 7.6 % (4.7-12.5); PLATELET COUNT 295 x10^3/uL (182-369); RDW 13.2 % (12.4-16.6)
[2024-09-23] MEDS: FAMOTIDINE 20 MG/50 ML IVPB 20 MG/50 ML MG IVPB ONE (13:44)
[2024-09-23] MEDS: MAG HYDROX/AL HYDROX/SIMETH 30 ML UNIT-DOSE CUP PO ONE (13:44)
[2024-09-23 14:02] LABS: POTASSIUM 3.9 mmol/L (3.5-5.1)
[2024-09-23 14:05] LABS: CALCIUM 10.8 mg/dL (8.5-10.1)
[2024-09-23 14:06] LABS: ALBUMIN 4.4 g/dl (3.4-5.0); BLOOD UREA NITROGEN 13.1 mg/dL (7-18)
[2024-09-23 14:09] LABS: BILIRUBIN,TOTAL 0.5 mg/dL (0.2-1); CREATININE 1.2 mg/dL (0.55-1.3); TOT PROT 9.2 g/dl (6.4-8.2)
[2024-09-23 14:59] LABS: HCV DIAGNOSTIC IN-HOUSE W/RFLX NON-REACTIVE (NONREACTIVE)
[2024-09-23 15:01] LABS: HIV INTERPRETATION NEGATIVE (NEGATIVE)
[2024-09-23 15:09] LABS: PH,URINE 6.5 (5.0-8.0); URINE APPEARANCE CLEAR; URINE BILIRUBIN NEGATIVE (NEGATIVE); URINE COLOR YELLOW; URINE GLUCOSE (UA) NEGATIVE (NEGATIVE); URINE KETONE NEGATIVE (NEGATIVE); URINE LEUK ESTERASE TRACE (NEGATIVE); URINE NITRITE NEGATIVE (NEGATIVE); URINE PROTEIN NEGATIVE (NEGATIVE); URINE UROBILINOGEN 0.2 mg/dL (0.2-1.0)
[2024-09-23 15:16] LABS: EPI CELLS 5 /uL (0-25.1); HYALINE CASTS 0 /uL (0-3.1); URINE BACTERIA 15 /uL (0-1359); URINE RBC 33 /uL (0-23.9); URINE WBC 7 /uL (0-25.8)
[2024-09-23 15:38] VITALS: BP 131/61; PULSE 84
== END 2024-09-23 15:23 | disposition home or self-care (01) ==
LOC: JER 11:39
PROC: 3E033GC Introduction of Other Therapeutic Substance into Peripheral Vein, Percutaneous Approach (ICD-10-PCS; principal; 2024-09-23)
DX: K42.9 Umbilical hernia without obstruction or gangrene (principal); K29.50 Unspecified chronic gastritis without bleeding
CPT/HCPCS: 36415; 71045-TC-FY; 80053; 81003; 83690; 83735; 84484; 85025; 86803; 87086; 87389; 93005; 93010; 99285-25